=== PATIENT | female | born 1970 | race Caucasian/White ===

== ENCOUNTER → 2017-11-16 16:41 | Outpatient (CLI) | payer OTHER, SELFPAY ==
[2017-11-16 18:01] LABS: Creatinine, Serum 0.67 mg/dL (0.55-1.02); EST Glomerular Filtration Rate 99 mL/min (>60); Est Glom Filt Rate - Afr Amer 120 mL/min (>60); Ferritin 22 ng/mL (8-252); Glucose 90 mg/dL (74-106)
== END ==
PROVIDERS: Family Provider Family Medicine; PCP Family Medicine; Visit Provider Family Medicine
DX: D64.9 Anemia, unspecified (principal); E16.2 Hypoglycemia, unspecified
CPT/HCPCS: 36415; 82565; 82728; 82947; 83036

== ENCOUNTER → 2017-12-19 10:35 | Outpatient (CLI) | payer OTHER, SELFPAY ==
[2017-12-19 12:47] LABS: Free T3 2.7 pg/mL (2.18-3.98); T4 Free Direct 1.07 ng/dL (0.76-1.46); Thyroid Stim Hormone (TSH) 1.39 uIU/mL (0.358-3.74)
== END ==
PROVIDERS: Family Provider Family Medicine; PCP Family Medicine; Visit Provider Family Medicine
DX: R00.0 Tachycardia, unspecified (principal)
CPT/HCPCS: 36415; 84439; 84443; 84481

== ENCOUNTER → 2018-01-15 12:17 | Outpatient (CLI) | payer OTHER, SELFPAY ==
--- NOTE | 2018-01-15 12:20 | BI_ITS ---
MAMMOGRAPHY - BILATERAL SCREENING REASON FOR EXAM: Female, 47 years old. Routine annual screening examination. PERTINENT HISTORY: Non-contributory. TECHNIQUE: Digital bilateral breast christian (3D mammographic acquisition) in the CC and MLO projections. 2-D mediolateral oblique (MLO) and craniocaudad (CC) views of both breasts were obtained. CAD: Full Field Digital Mammography with Computer Added Detection was performed. COMPARISON: None. Baseline examination. FINDINGS: Breast Composition: The breasts are extremely dense, which lowers the sensitivity of mammography. There are no dominant masses or suspicious calcifications. No other significant abnormalities are identified. BI/SCREENING MAMM (CAD), BILAT IMPRESSION: Negative screening mammogram. Yearly followup mammogram recommended. (A) ASSESSMENT CATEGORY: BIRADS Category 1: Negative. A letter regarding these results will be sent to the patient by the facility within 30 days. Approximately 10% of breast cancers are not detected by mammography. A normal mammogram should not delay biopsy of a clinically suspicious abnormality. [id number] Electronically Signed: Yaya Phillips MD at 15:21 EDT Tel [phone], Service support ,
== END ==
PROVIDERS: Family Provider Family Medicine; PCP Family Medicine; Visit Provider Family Medicine
DX: Z00.00 Encounter for general adult medical examination without abnormal findings (principal); Z12.31 Encounter for screening mammogram for malignant neoplasm of breast
CPT/HCPCS: 77063; 77067

== ENCOUNTER → 2018-07-30 17:38 | Outpatient (CLI) | payer OTHER, SELFPAY ==
[2018-07-30 14:43] VITALS: BMI 19.3
[2018-08-02 16:29] LABS: HPV APTIMA, High Risk Negative (Negative)
== END ==
PROVIDERS: Family Provider Family Medicine; PCP Family Medicine; Visit Provider Obstetrics & Gynecology
DX: Z12.4 Encounter for screening for malignant neoplasm of cervix (principal)
CPT/HCPCS: 87624; 88175; G0145

== ENCOUNTER → 2021-10-21 | Outpatient (CLI) | payer OTHER, SELFPAY ==
--- NOTE | 2021-10-21 14:12 | BI_ITS ---
MAMMOGRAPHY - BILATERAL SCREENING REASON FOR EXAM: Female, 51 years old. Routine annual screening examination. PERTINENT HISTORY: Non-contributory. TECHNIQUE: Digital bilateral breast hector (3D mammographic acquisition) in the CC and MLO projections. 2-D mediolateral oblique (MLO) and craniocaudad (CC) views of both breasts were obtained. CAD: Full Field Digital Mammography with Computer Added Detection was performed. COMPARISON: Comparison is made with prior study dated 01/15/2018. FINDINGS: Breast Composition: The breasts are extremely dense, which lowers the sensitivity of mammography. There are no dominant masses or suspicious calcifications. No other significant abnormalities are identified. There has been no significant change since the prior study. BI/SCRN MAMM (CAD)W/HECTOR BILAT IMPRESSION: Stable bilateral screening mammogram. Yearly follow-up mammogram recommended. (A) ASSESSMENT CATEGORY: BIRADS Category 1: Negative. A letter regarding these results will be sent to the patient by the facility within 30 days. Approximately 10% of breast cancers are not detected by mammography. A normal mammogram should not delay biopsy of a clinically suspicious abnormality. [id number] Electronically Signed: Yaya Phillips MD at 14:52 EDT ,
== END | disposition home or self-care (01) ==
LOC: OPBI 14:11
PROVIDERS: PCP Family Medicine; Visit Provider Family Medicine
DX: Z12.31 Encounter for screening mammogram for malignant neoplasm of breast (principal)
CPT/HCPCS: 77063; 77067

== ENCOUNTER → 2022-02-03 | Outpatient (CLI) | payer OTHER, SELFPAY ==
[2022-02-03 15:23] LABS: Absolute Lymphocyte Count 1.75 X10^3/uL (0.83-4.51); Absolute Neutrophil Count 3.8 X10^3/uL (2.0-7.7); Basophil# 0.03 X10^3/uL; Basophil% 0.5 % (0-1); Eosinophil# 0.15 X10^3/uL; Eosinophils% 2.4 % (0-5); Hematocrit 40.8 % (37-47); Hemoglobin 13.4 g/dL (12.0-15.0); Lymphocyte # 1.75 X10^3/ul (0.83-4.51); Lymphocyte % 28.4 % (19-41); Mean Corp Hgb Conc 32.8 g/dL (32-36); Mean Corpuscular Hgb 28.1 pg (27.0-32.0); Mean Corpuscular Volume 85.5 fL (81-99); Mean Platelet Vol. 10.4 fl (6.2-12.0); Monocyte# 0.47 X10^3/uL; Monocyte% 7.6 % (0-10); NRBC Flagged by Analyzer 0 % (0-5); Neutrophil # 3.75 X10^3/uL (2.7-7.7); Neutrophil % 60.9 % (47-70); Platelet Count 320 K/mm3 (150-450); RBC Distribution Width CV 14.1 % (11.6-14.6); RBC Distribution Width SD 44.4 fl (35.1-43.9); Red Blood Count 4.77 M/mm3 (4.2-5.4); White Blood Count 6.2 K/mm3 (4.4-11.0)
[2022-02-03 16:04] LABS: Cholesterol 195 mg/dL (200); Creatinine, Serum 0.72 mg/dL (0.55-1.02); EST Glomerular Filtration Rate 90 mL/min (>60); Est Glom Filt Rate - Afr Amer 109 mL/min (>60); Ferritin 17 ng/mL (8-252); High Density Lipoprotein 70 mg/dL; Iron 67 ug/dL (50-170)
== END | disposition home or self-care (01) ==
LOC: MTLAB 14:05
PROVIDERS: PCP Family Medicine; Referring Provider Family Medicine; Visit Provider Family Medicine
DX: E61.1 Iron deficiency (principal); Z13.220 Encounter for screening for lipoid disorders
CPT/HCPCS: 36415; 82465; 82565; 82728; 83540; 83718; 85025

== ENCOUNTER 2022-02-10 07:23 | Day surgery (SDC) | payer OTHER, SELFPAY ==
[2022-02-10] VITALS (8 sets, daily range): BP systolic 84–123; BP diastolic 59–85; PULSE 80–109; RESP 16–18; TEMP 36.1–36.9; O2SAT 97–100; BMI 18.1
[2022-02-10 07:55] LABS: Internal QC Validated? YES +Cl - CLEAR BKGD
[2022-02-10 07:59] LABS: Pregnancy, Urine Negative Negative
[2022-02-10] MEDS: Lactated Ringers 1,000 ML 15 ML IV (08:00)
--- NOTE | 2022-02-10 08:39 | H&P.OPEN ---
HPI - General General Date of Admission: 02/10/22 Date of Service: 02/10/22 Chief Complaint: Open access colonoscopy HPI Narrative VALERIO GAYLE, is a 51 F who presents for her screening colonoscopy after meeting criteria for open access screening. She confirms the history previously provided that she has not had any prior scopes. She has not had any changes to her bowel movements?including any observation of blood in her stools. She denies any family history of GI diagnoses. She comments on her history of documented reflux?stating is not that bad and that she is not on any medication for this issue. FORMERLY [facility] Medical History (Updated 02/04/22 @ 15:21 by Halley Magallanes) Allergic rhinitis, unspecified Gastric reflux History of echocardiogram History of irregular heartbeat History of ulceration Hypoglycemia Wears glasses Home Medications loratadine 10 mg tablet (Claritin) 10 mg PO PRN PRN ALLERGIES 07/30/18 [History Last Taken Unknown] Allergy/AdvReac Type Severity Reaction Status Date / Time amoxicillin Allergy Intermediate Rash Verified 02/10/22 07:36 Family History (Updated 12/22/21 @ 08:37 by Afshan Zhang) Sister Renal cancer Mother Rheumatoid arthritis Father Alzheimer disease Surgical History History of tonsillectomy Social History Smoking Status: Never smoker alcohol intake: never substance use type: does not use caffeine: Yes what type of physical activity do you participate in: walking seatbelt use: always do you feel safe at home: Yes additional social history: 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 Past Medical/Surgical History Planned Operation Planned Operative Procedure/s: COLONOSCOPY Previous Hospitalizations/Surgeries HX Hospitalizations: No Any Problems With Anesthesia: No You/Your Family Experience Fever (Hyperthermia) With Anes: No Cholinesterase deficiency: No Cardiovascular Hx Hypertension: No Respiratory Hx Sleep Apnea: No Hx Respiratory Tract Infection/Cold (presently): No Do You Snore Loudly (louder than talking or can be heard): No Do You Often Feel Tired/ Fatigued/ Sleepy Dring Daytime?: No Has Anyone Observed You Stop Breathing During Sleep?: No Result (for STOP score): Negative Smoking Status: Never smoker Neurological Does patient have nerve stimulator: No Reproduction : No Miscellaneous Recent Exposure to Contagious Disease: No Allergies amoxicillin Allergy (Intermediate, Verified 02/10/22 07:36) Rash Discharge Is Pt Admitted From a Longterm, or a Fdc: No After D/C, Where Do you Plan to Go: Return Home Vital Signs Vital Signs Vital Signs: 02/10/22 07:51 02/10/22 07:51 Temperature 98.5 F Temperature Source Temporal Pulse Rate 109 H Respiratory Rate 16 Respiratory Pattern Normal Blood Pressure 123/85 H Blood Pressure Mean 97 Blood Pressure Source Monitor Blood Pressure Position Semi-Fowlers Blood Pressure Location Right Arm Pulse Ox 100 Oxygen Delivery Method Room Air Weight Weight: 99 lb 3.328 oz Body Mass Index (BMI) 18.1 Physical Exam Const alert General Appearance: cooperative Resp normal respiratory effort GI soft to palpation and non-tender Assessment & Plan Assessment/Plan (1) Encounter for screening for malignant neoplasm of colon: PLAN: This is a 51-year-old, open access screening colonoscopy candidate who presents for her procedure today. She confirms a history previously obtained for criteria matching with open access program. She also confirms that she completed a bowel prep successfully and that her output is now clear. Therefore we will proceed for colonoscopy under local MAC as planned. Surgery Risks - Colonoscopy Risks Include but are not Limited To: Risks include but are not limited to: Bleeding, perforation requiring further surgery, inability to complete colonoscopy requiring barium enema.
--- NOTE | 2022-02-10 09:19 | OP.COLON_ITS ---
Patient Name: Lexii Feliz Procedure Date: 02/10/2022 8:32 AM Date of : 1970 Age: 51 Procedure: Colonoscopy Indications: Screening for colorectal malignant neoplasm Providers: Daryl Sanz MD Medicines: See the Anesthesia note for documentation of the administered medications Patient Profile: Refer to note in patient chart for documentation of history and physical. Last Colonoscopy: none. The patient's first colonoscopy is today. Complications: No immediate complications. Estimated blood loss: None. Procedure: Pre-Anesthesia Assessment: - The heart rate, respiratory rate, oxygen saturations, blood pressure, adequacy of pulmonary ventilation, and response to care were monitored throughout the procedure. After I obtained informed consent, the scope was passed under direct vision. Throughout the procedure, the patient's blood pressure, pulse, and oxygen saturations were monitored continuously. The pediatric colonoscope was introduced through the anus and advanced to the cecum, identified by appendiceal orifice and ileocecal valve. The colonoscopy was performed without difficulty. The patient tolerated the procedure well. The quality of the bowel preparation was adequate to identify polyps. Scope In: 8:46:55 AM Scope Withdrawal Time 0 hours 10 minutes 31 seconds Scope Out: 9:07:35 AM Total Procedure Duration Time 0 hours 20 minutes 40 seconds Findings: The perianal and digital rectal examinations were normal. The entire examined colon appeared normal on direct and retroflexion views. Impression: - The entire examined colon is normal on direct and retroflexion views. - No specimens collected. Recommendation: - Discharge patient to home (via wheelchair). - Resume regular diet today. - Continue present medications. - Repeat colonoscopy in 10 years for screening purposes. Procedure Code(s): --- Professional --- G0121, Colorectal cancer screening; colonoscopy on individual not meeting criteria for high risk Diagnosis Code(s): --- Professional --- Z12.11, Encounter for screening for malignant neoplasm of colon CPT copyright 2017 [employer]. All rights reserved. The codes documented in this report are preliminary and upon financial reporting specialist review may be revised to meet current compliance requirements. Daryl Sanz MD 02/10/2022 9:18:42 AM This report has been signed electronically. Number of Addenda: 0 Note Initiated On: 02/10/2022 8:32 AM
--- NOTE | 2022-02-10 09:20 | OP.CCLET_ITS ---
02/10/2022 Sriram Gomez [address] [place] [address] Re : Colonoscopy procedure for Lexii Feliz Dear Dr. Gomez This procedure was performed on January. My impressions and recommendations are as follows: Impressions : - The entire examined colon is normal on direct and retroflexion views. - No specimens collected. Recommendations : - Discharge patient to home (via wheelchair). - Resume regular diet today. - Continue present medications. - Repeat colonoscopy in 10 years for screening purposes. My findings are described in the full procedure note, which is enclosed. If I can be of further assistance, please feel free to contact me at Doctor phone number(s): , Work: . Sincerely, Daryl Sanz MD 02/10/2022 9:18:42 AM This report has been signed electronically.
== END 2022-02-10 10:10 | disposition home or self-care (01) ==
LOC: EN 07:29 → AC 08:02
PROVIDERS: Anesthesiology; PCP Family Medicine; Referring Provider Family Medicine; Visit Provider Surgery
PROC: 0DJD8ZZ Inspection of Lower Intestinal Tract, Via Natural or Artificial Opening Endoscopic (ICD-10-PCS; CPT 45378; principal; 2022-02-10 08:25)
DX: Z12.11 Encounter for screening for malignant neoplasm of colon (principal); K92.1 Melena
CPT/HCPCS: G0121; 81025; J7120

== ENCOUNTER → 2023-01-19 | Outpatient (CLI) | payer OTHER, SELFPAY ==
--- NOTE | 2023-01-19 15:06 | BI_ITS ---
MAMMOGRAPHY - BILATERAL SCREENING REASON FOR EXAM: Female, 52 years old. Routine annual screening examination. PERTINENT HISTORY: Non-contributory. TECHNIQUE: Digital bilateral breast hector (3D mammographic acquisition) in the CC and MLO projections. 2-D mediolateral oblique (MLO) and craniocaudad (CC) views of both breasts were obtained. CAD: Full Field Digital Mammography with Computer Added Detection was performed. COMPARISON: Comparison is made with prior examination of October 21, 2021 and January 15, 2018. FINDINGS: Breast Composition: The breasts are extremely dense, which lowers the sensitivity of mammography. There are no dominant masses or suspicious calcifications. No other significant abnormalities are identified. There has been no significant change since the prior study. BI/SCRN MAMM (CAD)W/HECTOR BILAT IMPRESSION: Stable bilateral screening mammogram. Yearly follow-up mammogram recommended. (A) ASSESSMENT CATEGORY: BIRADS Category 1: Negative. A letter regarding these results will be sent to the patient by the facility within 30 days. Approximately 10% of breast cancers are not detected by mammography. A normal mammogram should not delay biopsy of a clinically suspicious abnormality. [id number] Electronically Signed: Yaya Phillips MD at 15:38 EDT ,
== END | disposition home or self-care (01) ==
PROVIDERS: PCP Family Medicine; Referring Provider Family Medicine; Visit Provider Family Medicine
DX: Z12.31 Encounter for screening mammogram for malignant neoplasm of breast (principal)
CPT/HCPCS: 77063; 77067

== ENCOUNTER → 2023-05-18 | Outpatient (CLI) | payer OTHER, SELFPAY ==
[2023-05-18 17:46] LABS: Absolute Lymphocyte Count 1.56 X10^3/uL (0.83-4.51); Basophil# 0.04 X10^3/uL; Basophil% 0.7 % (0-1); Eosinophil# 0.09 X10^3/uL; Eosinophils% 1.5 % (0-5); Hemoglobin 13.6 g/dL (12.0-15.0); Lymphocyte # 1.56 X10^3/ul (0.83-4.51); Lymphocyte % 25.4 % (19-41); Mean Corp Hgb Conc 32.4 g/dL (32-36); Mean Corpuscular Hgb 28.2 pg (27.0-32.0); Mean Platelet Vol. 10.3 fl (6.2-12.0); Monocyte# 0.45 X10^3/uL; Monocyte% 7.3 % (0-10); NRBC Flagged by Analyzer 0 % (0-5); Neutrophil % 64.9 % (47-70); Platelet Count 318 K/mm3 (150-450); RBC Distribution Width CV 13.2 % (11.6-14.6); RBC Distribution Width SD 41.9 fl (35.1-43.9); RET-HE 32.9 pg (30-35); Red Blood Count 4.83 M/mm3 (4.2-5.4); Reticulocyte Count 1.22 % (0.5-1.5); White Blood Count 6.2 K/mm3 (4.4-11.0)
[2023-05-18 18:09] LABS: Vitamin B12 734 pg/mL (211-911)
[2023-05-18 19:02] LABS: ALB/GLOB Ratio 1.1 RATIO (0.9-2.4); AST(SGOT) 18 U/L (15-37); Alanine Aminotransfer ALT/SGPT 24 U/L (13-56); Albumin, Serum 3.8 g/dL (3.2-5.0); Alkaline Phosphatase 93 U/L (45-117); Anion Gap 3 (5-15); BUN 19 mg/dL (7-18); BUN/Creat Ratio 20.9 RATIO (10-20); Calcium,Total 9.5 mg/dL (8.5-10.1); Chloride 105 mmol/L (98-107); Creatinine, Serum 0.91 mg/dL (0.55-1.02); EST Glomerular Filtration Rate 69 mL/min (>60); Est Glom Filt Rate - Afr Amer 83 mL/min (>60); Globulin 3.6 g/dL (2.2-4.2); Glucose 103 mg/dL (74-106); Iron 83 ug/dL (50-170); Iron Binding Capacity,Total 321 ug/dL (250-450); Potassium 3.7 mmol/L (3.5-5.1); Protein, Total 7.4 g/dL (6.4-8.2); Sodium Level 139 mmol/L (136-145)
== END | disposition home or self-care (01) ==
LOC: MTLAB 14:18
PROVIDERS: PCP Family Medicine; Referring Provider Family Medicine; Visit Provider Family Medicine
DX: E61.1 Iron deficiency (principal)
CPT/HCPCS: 36415; 80053; 82607; 82746; 83540; 83550; 85025; 85045

== ENCOUNTER → 2023-08-17 | Outpatient (CLI) | payer OTHER, SELFPAY ==
[2023-08-17 17:42] LABS: Erythrocyte Sedimentation Rate 3 mm/hr (0-30)
[2023-08-17 18:26] LABS: CRP < 2.90 mg/L (0.0-3.0); Cholesterol 199 mg/dL (200); High Density Lipoprotein 67 mg/dL
[2023-08-21 14:08] LABS: PROEL- A/G Ratio 1.4 (0.7-1.7); PROEL- Albumin 3.9 g/dL (2.9-4.4); PROEL- Alpha-1 Globulin 0.2 g/dL (0.0-0.4); PROEL- Alpha-2 Globulin 0.6 g/dL (0.4-1.0); PROEL- Beta Globulin 1.1 g/dL (0.7-1.3); PROEL- Gamma Globulin 0.9 g/dL (0.4-1.8); PROEL- Globulin, Total 2.8 g/dL (2.2-3.9); PROEL- TOTAL PROTEIN 6.7 g/dL (6.0-8.5); PROEL-M-Spike Not Observed g/dL (Not Observed)
== END | disposition home or self-care (01) ==
LOC: MFPLAB 15:27
PROVIDERS: PCP Family Medicine; Visit Provider Family Medicine
DX: I73.9 Peripheral vascular disease, unspecified (principal)
CPT/HCPCS: 36415; 82465; 83718; 84165; 85652; 86140

== ENCOUNTER 2023-08-31 08:35 | Outpatient (CLI) | payer OTHER, SELFPAY ==
--- NOTE | 2023-08-31 08:47 | VDLE_ITS ---
Reason For Study: edema RIGHT LEFT CFV is compressible, spontaneous, phasic, CFV is compressible, spontaneous, phasic, competent and demonstrates normal competent, and demonstrates normal augmentation. augmentation. FV is compressible, spontaneous, phasic, FV is compressible, spontaneous, phasic, competent and demonstrates normal competent and demonstrates normal augmentation. augmentation. POP V is compressible, spontaneous, phasic, POP V is compressible, spontaneous, phasic, competent and demonstrates normal competent and demonstrates normal augmentation. augmentation. T/P Trunk is compressible. T/P Trunk is compressible. PTV is compressible. PTV is compressible. RT PerV is compressible. LT PerV is compressible. SFJ is competent and measures .35 cm. SFJ is competent and measures .55 cm. GSV proximal thigh measures .12 x .14 cm. GSV proximal thigh measures .16 x .14 cm. GSV at knee measures .06 x .06 cm. GSV at knee measures .08 x .1 cm. GSV is competent throughout. GSV is competent throughout. SSV proximal calf is competent and SSV proximal calf is competent and measures .08 x .1 cm. measures .1 x .12 cm. Procedure This is a venous duplex using B-mode, color flow and spectral Doppler. Exam performed in department. The exam was diagnostic. VL/Venous Duplex US - Joce Extrem Interpretation Summary Deep veins of the lower extremities are bilaterally patent and compressible seg mentally. There is no evidence of deep vein thrombosis on either side. Valvular competence appears in tact within the proximal deep venous systems bilaterally. The great saphenous veins appear bila terally patent and compressible segmentally. Sapheno-femoral junctions are bilaterally competent . Valvular competence appears to be intact segmentally within the great saphenous veins bilaterally. Small saphenous veins are patent and competent bilaterally. Ordering Physician: Sriram Gomez Referring Physician: Sriram Gomez Performed By: Abdifatah James RVT
--- NOTE | 2023-08-31 08:47 | ART_ITS ---
Reason For Study: PVD with claudication Procedure A bilateral lower extremity continuous wave Doppler with analog waveform analysis,segmental pressures,and ankle brachial indexes with exercise. Left Segmental Pressures Left brachial= 127mmHg. Left posterior tibial artery = 150mmHg. Left dorsalis pedis artery = 127mmHg. Left digit = 100 mmHg. The left dorsalis pedis waveforms are triphasic. The left posterior tibial artery waveforms are triphasic. Right Segmental Pressures Right brachial= 124mmHg. Right posterior tibial artery = 141mmHg. Right dorsalis pedis artery = 141mmHg. Right digit = 106 mmHg. The right dorsalis pedis waveforms are triphasic. The right posterior tibial artery waveforms are triphasic. Indices The right ankle brachial index by the posterior tibial artery is 1.11. The right ankle brachial index by the dorsalis pedis is 1.11. The right digital-brachial index is .83. The right post exercise ankle brachial index is 1.32. The left ankle brachial index by the dorsalis pedis is 1.0. The left ankle brachial index by the posterior tibial artery is 1.18. The left digital-brachial index is .79. The left post exercise ankle brachial index is 1.31. VL/Lower Ext Art Exam w/ Exercise Interpretation Summary Triphasic Doppler waveforms are noted at ankle level bilaterally. Pulse-volume recordings appear satisfactory at all levels bilaterally. Resting ankle-brachial indices are norm al bilaterally. Digital-brachial indices are normal bilaterally. The patient was ambulated on a treadmill at 2.1 MPH and a 5% incline, following which ankle pressures and ankle-brachial indices in creased bilaterally, a normal physiological response. There is no evidence of significant arterial occlusive disease in the lower ext remities bilaterally. Ordering Physician: Sriram Gomez Performed By: Abdifatah James RVKirill
== END 2023-08-31 23:59 | disposition home or self-care (01) ==
PROVIDERS: PCP Family Medicine; Referring Provider Family Medicine; Visit Provider Family Medicine
DX: I73.9 Peripheral vascular disease, unspecified (principal); R60.9 Edema, unspecified
CPT/HCPCS: 93924; 93970

== ENCOUNTER → 2023-10-17 | Outpatient (CLI) | payer OTHER, SELFPAY ==
--- NOTE | 2023-10-17 13:48 | ECHOD_ITS ---
Reason For Study: CARDIOMYOPATHY Procedure This was a 2D Doppler, Color Flow transthoracic echocardiogram. Exam performed in department. Left Ventricle Normal LV size. Left ventricular systolic function is normal. The left ventricular ejection fraction is 60 %. No regional wall motion abnormalities noted. Right Ventricle Normal RV size. Normal systolic function. Atria Normal left atrium. Normal right atrium. Mitral Valve Normal mitral valve. Tricuspid Valve Normal tricuspid valve. Mild tricuspid valve insufficiency. Pulmonary artery systolic pressure is 27 mmHg. Aortic Valve Trisinus/trileaflet aortic valve. Pulmonic Valve Normal pulmonic valve. Great Vessels Normal aortic root. The pulmonary artery is normal size. Normal inferior vena cava. Pericardium/Pleural No pericardial effusion. MMode/2D Measurements & Calculations LVIDd: 4.2 cm IVSd: 0.71 cm Ao root diam: 2.4 cm LVIDs: 2.8 cm LVPWd: 0.60 cm RVDd: 2.4 cm FS: 34.5 % LAV(MOD-bp): 30.5 ml LVAd ap4: 19.3 cm2 LVAd ap2: 19.5 cm2 LAV(MOD-bp) Indexed: 21.1 ml/m2 LVLd ap4: 6.3 cm LVLd ap2: 7.1 cm LAV(MOD-sp2): 30.6 ml EDV(MOD-sp4): 48.9 ml EDV(MOD-sp2): 45.9 ml LAV(MOD-sp4): 29.8 ml EDV(sp4-el): 50.1 ml EDV(sp2-el): 45.7 ml LVAs ap4: 10.6 cm2 LVAs ap2: 11.1 cm2 LVLs ap4: 4.9 cm LVLs ap2: 5.2 cm ESV(MOD-sp4): 20.1 ml ESV(MOD-sp2): 20.2 ml ESV(sp4-el): 19.3 ml ESV(sp2-el): 20.3 ml EF(MOD-sp4): 59.0 % EF(MOD-sp2): 56.0 % EF(sp4-el): 61.5 % SV(MOD-sp4): 28.9 ml SV(MOD-sp2): 25.7 ml SV(sp4-el): 30.8 ml LA dimension(2D): 2.5 cm LA A4 area: 12.7 cm2 RA A4 area: 9.9 cm2 TAPSE: 2.4 cm Time Measurements MV dec time: 0.13 sec Doppler Measurements & Calculations MV E max daryl: 62.9 cm/sec Lat Peak E' Daryl: 10.7 cm/sec Med Peak E' Daryl: 11.3 cm/sec MV A max daryl: 56.7 cm/sec E/E' lat: 5.9 E/E' med: 5.6 MV E/A: 1.1 MV V2 max: 86.7 cm/sec MV P1/2t max daryl: 85.7 cm/sec Ao V2 max: 135.3 cm/sec MV max P.0 mmHg MV P1/2t: 28.5 msec Ao max P.3 mmHg MV V2 mean: 49.2 cm/sec MV dec slope: 881.5 cm/sec2 Ao V2 mean: 94.6 cm/sec MV mean P.1 mmHg Ao mean P.0 mmHg MV V2 VTI: 14.7 cm MVA(P1/2t): 7.7 cm2 Ao V2 VTI: 26.4 cm AV (velocity ratio): 0.81 LV V1 max: 104.3 cm/sec PA V2 max: 108.8 cm/sec TR max daryl: 240.4 cm/sec LV V1 max P.4 mmHg PA V2 mean: 77.3 cm/sec TR max P.1 mmHg LV V1 mean P.3 mmHg LV V1 mean: 72.1 cm/sec LV V1 VTI: 21.6 cm ECHO/Echo Complete Interpretation Summary Normal LV size. Left ventricular systolic function is normal. Pulmonary artery systolic pressure is 27 mmHg. The left ventricular ejection fraction is 60 %. Mild tricuspid valve insufficiency. Ordering Physician: Sriram Gomez Referring Physician: Sriram Gomez Performed By: Ev Gramajo, RIYA, RVT
== END | disposition home or self-care (01) ==
LOC: CVS 13:46
PROVIDERS: PCP Family Medicine; Referring Provider Family Medicine; Visit Provider Family Medicine
DX: I42.9 Cardiomyopathy, unspecified (principal); I07.9 Rheumatic tricuspid valve disease, unspecified
CPT/HCPCS: 93306

== ENCOUNTER → 2023-10-26 | Outpatient (CLI) | payer OTHER, SELFPAY ==
[2023-10-28 10:13] LABS: Lyme Scn Total Ab w/Rflx Negative (Negative)
== END | disposition home or self-care (01) ==
LOC: MFPLAB 14:10
PROVIDERS: PCP Family Medicine; Visit Provider Family Medicine
DX: R00.2 Palpitations (principal)
CPT/HCPCS: 36415; 86618

== ENCOUNTER → 2024-01-10 | Outpatient (CLI) | payer OTHER, SELFPAY ==
[2024-01-10 12:10] LABS: T4 Total, Thyroxin 11.9 ug/dL (4.8-13.9); Thyroid Stim Hormone (TSH) 0.985 uIU/mL (0.358-3.740)
== END | disposition home or self-care (01) ==
LOC: LAB 11:15
PROVIDERS: PCP Family Medicine; Referring Provider Internal Medicine Cardiovascular Disease; Visit Provider Internal Medicine Cardiovascular Disease
DX: R00.0 Tachycardia, unspecified (principal)
CPT/HCPCS: 36415; 84436; 84443

== ENCOUNTER → 2024-01-31 | Outpatient (CLI) | payer OTHER, SELFPAY | END | disposition home or self-care (01) | LOC: PSN 08:52 | PROVIDERS: PCP Family Medicine; Referring Provider Internal Medicine Cardiovascular Disease; Visit Provider Internal Medicine Cardiovascular Disease | DX: R00.0 Tachycardia, unspecified (principal) | CPT/HCPCS: 93225; 93226 ==

== ENCOUNTER → 2024-03-05 | Outpatient (CLI) | payer OTHER, SELFPAY ==
[2024-03-14 06:09] LABS: Dopamine, Pl <30 pg/mL (0-48); Epinephrine, Pl 79 pg/mL (0-62); Norepinephrine, Pl 553 pg/mL (0-874); Renin, Plasma 0.772 ng/mL/hr (0.167-5.380)
== END | disposition home or self-care (01) ==
LOC: LAB 11:26
PROVIDERS: PCP Family Medicine; Referring Provider Internal Medicine Cardiovascular Disease; Visit Provider Internal Medicine Cardiovascular Disease
DX: R00.0 Tachycardia, unspecified (principal); R00.2 Palpitations
CPT/HCPCS: 36415; 82384; 84244

== ENCOUNTER → 2024-03-28 | Outpatient (CLI) | payer OTHER, SELFPAY ==
[2024-04-09 14:07] LABS: HPV APTIMA, High Risk Negative (Negative)
== END | disposition home or self-care (01) ==
LOC: LABSPEC 16:53
PROVIDERS: PCP Family Medicine; Referring Provider Nurse Practitioner Women's Health; Visit Provider Nurse Practitioner Women's Health
DX: Z12.4 Encounter for screening for malignant neoplasm of cervix (principal)
CPT/HCPCS: 87624; 88175; G0145

== ENCOUNTER → 2024-05-02 | Outpatient (CLI) | payer BC, SELFPAY ==
--- NOTE | 2024-05-02 13:14 | BI_ITS ---
MAMMOGRAPHY - BILATERAL SCREENING REASON FOR EXAM: Female, 54 years old. Routine annual screening examination. PERTINENT HISTORY: Non-contributory. TECHNIQUE: Digital bilateral breast hector (3D mammographic acquisition) in the CC and MLO projections. 2-D mediolateral oblique (MLO) and craniocaudad (CC) views of both breasts were obtained. CAD: Full Field Digital Mammography with Computer Added Detection was performed. COMPARISON: Comparison is made with prior study January 19, 2023 and October 21, 2021. FINDINGS: Breast Composition: The breasts are extremely dense, which lowers the sensitivity of mammography. There are no dominant masses or suspicious calcifications. No other significant abnormalities are identified. There has been no significant change since the prior study. BI/SCRN MAMM (CAD)W/HECTOR BILAT IMPRESSION: Stable bilateral screening mammogram. Yearly follow-up mammogram recommended. (A) ASSESSMENT CATEGORY: BIRADS Category 1: Negative. A letter regarding these results will be sent to the patient by the facility within 30 days. Approximately 10% of breast cancers are not detected by mammography. A normal mammogram should not delay biopsy of a clinically suspicious abnormality. [id number] Electronically Signed: Yaya Phillips MD at 14:53 EST ,
== END | disposition home or self-care (01) ==
LOC: OPBI 13:13
PROVIDERS: PCP Family Medicine; Referring Provider Nurse Practitioner Women's Health; Visit Provider Nurse Practitioner Women's Health
DX: Z12.31 Encounter for screening mammogram for malignant neoplasm of breast (principal)
CPT/HCPCS: 77063; 77067

== ENCOUNTER → 2025-02-13 | Outpatient (CLI) | payer BC, SELFPAY ==
[2025-02-13 18:10] LABS: Hematocrit 41.5 % (37-47); Hemoglobin 13.7 g/dL (12.0-15.0); Immature Granulocytes Count 0.020 X10^3/uL (0.0-0.0); Mean Corp Hgb Conc 33.0 g/dL (32-36); Mean Corpuscular Volume 86.5 fL (81-99); Mean Platelet Vol. 10.6 fl (6.2-12.0); NRBC Flagged by Analyzer 0 % (0-5); Platelet Count 341 K/mm3 (150-450); RBC Distribution Width CV 13.3 % (11.6-14.6); RBC Distribution Width SD 41.8 fl (35.1-43.9); Red Blood Count 4.80 M/mm3 (4.2-5.4); White Blood Count 8.1 K/mm3 (4.4-11.0)
[2025-02-13 19:03] LABS: AST(SGOT) 19 U/L (<=31); Alanine Aminotransfer ALT/SGPT 14 U/L (<=34); Albumin, Serum 4.5 g/dL (3.5-5.0); Alkaline Phosphatase 93 U/L (35-104); Anion Gap 11 (5-15); BUN 15 mg/dL (4-19); BUN/Creat Ratio 23.1 RATIO (10-20); Calcium,Total 9.9 mg/dL (7.6-11.0); Carbon Dioxide 26.0 mmol/L (21.0-32.0); Chloride 104 mmol/L (98-108); Globulin 2.9 g/dL (2.2-4.2); Glucose 126 mg/dL (70-99); Potassium 3.8 mmol/L (3.3-5.1); Vitamin B12 947 pg/mL (180-914); Vitamin D,25 Hydroxy 47.5 ng/mL (30-100)
[2025-02-13 19:04] LABS: CRP < 3.00 mg/L (0.0-3.0)
[2025-02-17 09:08] LABS: ANTINUCLEAR ANTIBODIES DIRECT Negative (Negative); SJOGREN'S Anti-SS-A test 0.2 AI (0.0-0.9); SJOGREN'S Anti-SS-B test < 0.2 AI (0.0-0.9)
== END | disposition home or self-care (01) ==
LOC: MTLAB 14:03
PROVIDERS: PCP Family Medicine; Referring Provider Podiatrist; Visit Provider Podiatrist
DX: G62.9 Polyneuropathy, unspecified (principal)
CPT/HCPCS: 36415; 80053; 82306; 82607; 83036; 85025; 85652; 86038; 86140; 86200; 86235; 86431

== ENCOUNTER → 2025-03-26 | Outpatient (CLI) | payer BC, SELFPAY ==
--- OUTSIDE RECORDS SUMMARY | 2025-03-26 07:16 | XMS RPT_ITS | CCD ---
Author Organization [facility] Care Team Providers Care Implementation Engineer Name Role Phone Dr. Sriram Gomez Primary Care Provider Afshan Zhang Attending Provider Unavailable Dr. Sriram Gomez Referring Provider Dr. Daryl Sanz Attending Provider [phone] Dr. Daryl Sanz Other Provider Jason VALDERRAMA, Dr. Bhatia Primary Care Physician Jason VALDERRAMA, Dr. Bhatia Referring Provider Violette VALDERRAMA, Dr. Willis Attending Physician Gomez, Sriram Primary Care Unavailable Wunning, Sergio Attending Unavailable Felipenning, Sergio Referring Unavailable Violette, [place] Attending Unavailable Gomez, Sriram Referring Unavailable Gomez, Sriram Primary Care Unavailable Gomez, Sriram Referring Unavailable Violette, [place] Attending Unavailable Gomez, Sriram Primary Care Unavailable Gomez, Sriram Primary Care Unavailable Violette, [place] Attending Unavailable Goemz, Sriram Referring Unavailable Gomez, Sriram Primary Care Unavailable Gomez, Sriram Referring Unavailable Harpreet MARKETING ANALYST, Maricel Attending Unavailable Gomez, Sriram Primary Care Unavailable [place] MARKETING ANALYST, Maricel Attending Unavailable Harpreet MARKETING ANALYST, Maricel Referring Unavailable Gomez, Sriram Primary Care Unavailable Violette, Lazaro Attending Unavailable Violette, Lazaro Referring Unavailable Gomez, Sriram Primary Care Unavailable Harpreet MARKETING ANALYST, Maricel Attending Unavailable [place] MARKETING ANALYST, Maricel Referring Unavailable Gomez, Sriram Primary Care Unavailable Wunning, Sergio Attending Unavailable Wunning, Sergio Referring Unavailable Gomez, Sriram Primary Care Unavailable Wunning, Sergio Attending Unavailable Wunning, Sergio Referring Unavailable Allergies Allergy Classification Reported Allergen(s) Allergy Type Date of Onset Reaction(s) Facility (5 sources) Amoxicillin Drug Allergy 02-04-2022 Rash [facility] (1 source) Amoxicillin Drug Allergy 01-09-2025 [facility] Repository Medications Current Medications Medication Drug Class(es) Dates Sig (Normalized) Sig (Original) ivabradine 5 mg oral tablet (4 sources) Hyperpolarizatio n-activated Cyclic Nucleotide-gated Channel Jabari Start: 03-05-2024 End: 01-09-2025 take 1 tablet by mouth twice daily at mealtime Ivabradine 5 mg tablet Active 5 mg PO TWICE A DAY 180 January 09, 2025 3:14pm must administer with a meal/food Complies with drug therapy loratadine 10 mg oral tablet (6 sources) Start: 07-30-2018 Loratadine (Claritin) 10 mg tablet Active 10 mg PO NEEDED as needed for ALLERGIES July 30, 2018 12:00am Complies with drug therapy midodrine hydrochloride 2.5 mg oral tablet (2 sources) alpha-Adrenergic Agonist Start: 09-24-2024 take 1 tablet by mouth twice daily Midodrine 2.5 mg tablet Active 2.5 mg PO TWICE A DAY 60 11 September 24, 2024 12:00am Complies with drug therapy Start: 07-11-2024 End: 09-24-2024 take 1 tablet by mouth once daily at bedtime Midodrine 5 mg tablet Discontinued 5 mg PO TWICE A DAY 60 July 11, 2024 12:00am September 24, 2024 10:16am do not give last dose of day after 6PM or within 4 hrs of bedtime Multivitamin tablet (1 source) Start: 09-12-2023 Multivitamin t ablet Active 1 {tbl} PO DAILY September 12, 2023 12:00am Complies with drug therapy Completed/Discontinued Medications Medication Drug Class(es) Dates Sig (Normalized) Sig (Original) 24 hr dilTIAZem hydrochloride 120 mg extended release oral capsule (1 source) Calcium Channel Jabari Start: 11-28-2023 End: 01-10-2024 take 1 capsule by mouth once daily Diltiazem Hcl 120 mg capsule,extended release 24 hr Discontinued 120 mg PO DAILY November 28, 2023 12:00am January 10, 2024 10:31am Magnesium (1 source) Start: 09-12-2023 End: 03-05-2024 take 1 tablet by mouth once daily Magnesium 250 mg tablet Discontinued 250 mg PO DAILY September 12, 2023 12:00am March 05, 2024 11:53am Multivitamin,Tx-Iron -Minerals (Complete Multivitamin) tablet (6 sources) Start: 07-30-2018 End: 12-22-2021 Multivitamin,Tx-Ir on-Minerals (Complete Multivitamin) tablet Discontinued 1 {tbl} PO DAILY July 30, 2018 12:00am December 22, 2021 8:38am Start: 07-30-2018 End: 12-22-2021 take 1 tablet by mouth once daily Multivitamin,Ep-Ekcp-Nysifiik (Complete Multivitamin) tablet Discontinued 1 TABLET PO DAILY July 29, 2018 11:00pm December 22, 2021 7:38am Start: 07-30-2018 End: 12-22-2021 take 1 tablet by mouth once daily Multivitamin,Jj-Npik-Wjmaffre (Complete Multivitamin) tablet Discontinued 1 TABLET PO DAILY July 30, 2018 12:00am December 22, 2021 8:38am Start: 07-30-2018 take 1 tablet by greg th once daily Multivitamin,Qz-Shku-Hocmmlwp (Complete Multivitamin) tablet Active 1 TABLET PO DAILY July 30, 2018 12:00am vitamin k2 0.1 mg oral capsu le (2 sources) Start: 11-28-2023 End: 01-10-2024 Vitamin K2 100 mcg capsule Discontinued 100 ug PO DAILY November 28, 2023 12:00am January 10, 2024 10:32am leg pain Start: 09-12-2023 End: 11-28-2023 Vitamin K2 40 mcg tablet Dis continued 40 ug PO DAILY September 12, 2023 12:00am November 28, 2023 3:16pm Problems Active Problems Problem Classification Problem Date Documented Da te Episodic/Chronic Esophageal disorders (1 source) Gastric reflux; Translations: [Gastro-esophageal reflux disease without esophagitis] 11-28-2023 Chronic Other circulatory disease (1 source) History of cardiac arrhythmia; Translations: [Personal history of other diseases of the circulatory system] 11-28-2023 Episodic Comment on above: HEART MURMUR Other connective tissue disease (1 source) Pain in lower limb; Translations: [Pain in leg, unspecified] 09-12-2023 Episodic Other connective tissue disease (1 source) Pain in right foot; Translations: [Pain in right foot] Onset: 02-24-2025 Episodic Other connective tissue disease (1 source) Pain in left foot; Translations: [Pain in left foot] Onset: 02-24-2025 Episodic Other nervous system disorders (1 source) Other hereditary and idiopathic neuropathies; Translations: [Other hereditary and idiopathic neuropathies] Onset: 02-24-2025 Chronic Past or Other Problems Problem Classification Problem Date Documented Da te Episodic/Chronic Cardiac dysrhythmias (5 sources) Intermittent palpitations; Translations: [Palpitations] Onset: 03-05-2024 11-28-2023 Episodic Other screening for suspected conditions (not mental disorders or infectious disease) (8 sources) Patient encounter status; Translations: [Encounter for screening for malignant neoplasm of colon] Onset: 03-28-2024 Episodic Results Test Name Value Interpretation Reference Range Facility ANTINUCLEAR ANTIBODIES DIREC Ton 02-17-2025 TIGIST,DIRECT Negative Normal Negative [facility] Comment on above: Result Comment: Perf ormed at: - [facility] [address] [id number] Public Works Technician: Ramón Alejo PhD, Phone: [phone] Performed By: #### L 501.9985, L501.6710, L505.7010, L101.9900, L3100.5475, L3100.9100, L4600.0100, L506.1001, L100.0100, L500.4050, L503.0106 ####[facility] [address] [place], [address] Sjogren's Antibodies A/Bon 1 04-19-2024 ANTI-SS-A 0.2 AI Normal 0.0-0.9 [facility] Comment on above: Performed By: #### L 501.9985, L501.6710, L505.7010, L101.9900, L3100.5475, L3100.9100, L4600.0100, L506.1001, L100.0100, L500.4050, L503.0106 ####[facility] [address] [place], [address] ANTI-SS-B < 0.2 Normal 0.0-0.9 [facility] Comment on above: Performed By: #### L 501.9985, L501.6710, L505.7010, L101.9900, L3100.5475, L3100.9100, L4600.0100, L506.1001, L100.0100, L500.4050, L503.0106 ####[facility] [address] [place], [place], [id number] CCP IgG Antibodieson 025 CCP IgG Ab. 9 units Normal 0-19 [facility] Comment on above: Result Comment: Nega tive <20 Weak positive 20 - 39 Moderate positive 40 - 59 Strong positive >59 Performed at: [address] [id number] Public Works Technician: Ramón Alejo PhD, Phone: [phone] Performed By: #### L 501.9985, L501.6710, L505.7010, L101.9900, L3100.5475, L3100.9100, L4600.0100, L506.1001, L100.0100, L500.4050, L503.0106 ####[facility] [address] [place], [place], [id number] CBC W/Diff, Automatedon 10-3 0-5 Absolute Lymph 1.23 X10 3/uL Normal 0.83-4.51 [facility] Comment on above: Performed By: #### L 501.9985, L501.6710, L505.7010, L101.9900, L3100.5475, L3100.9100, L4600.0100, L506.1001, L100.0100, L500.4050, L503.0106 #### [facility] [address] [place], [place], [id number] Absolute Neut 6.4 X10 3/uL Normal 2.0-7.7 [facility] Comment on above: Performed By: #### L 501.9985, L501.6710, L505.7010, L101.9900, L3100.5475, L3100.9100, L4600.0100, L506.1001, L100.0100, L500.4050, L503.0106 #### [facility] [address] [place], [address] Basophils/100 WBC (Bld) 0.5 % Normal 0-1 [facility] Comment on above: Performed By: #### L 501.9985, L501.6710, L505.7010, L101.9900, L3100.5475, L3100.9100, L4600.0100, L506.1001, L100.0100, L500.4050, L503.0106 #### [facility] [address] [facility] [place], [place], [phone] ([address] Eosinophils/100 WBC (Bld) 0.5 % Normal 0-5 [facility] Comment on above: Performed By: #### L 501.9985, L501.6710, L505.7010, L101.9900, L3100.5475, L3100.9100, L4600.0100, L506.1001, L100.0100, L500.4050, L503.0106 #### [facility] [address] [facility] [place], [place], [id number] (959) Erythrocyte distribution width (RBC) [Ratio] 13.3 % Normal 11.6-14.6 [facility] Comment on above: Performed By: #### L 501.9985, L501.6710, L505.7010, L101.9900, L3100.5475, L3100.9100, L4600.0100, L506.1001, L100.0100, L500.4050, L503.0106 #### [facility] [address] [place], [address] Hematocrit (Bld) [Volume fraction] 41.5 % Normal 37-47 [facility] Comment on above: Performed By: #### L 501.9985, L501.6710, L505.7010, L101.9900, L3100.5475, L3100.9100, L4600.0100, L506.1001, L100.0100, L500.4050, L503.0106 #### [facility] [address] [place], [address] Hemoglobin (Bld) [Mass/Vol] 13.7 g/dL Normal 12.0-15.0 [facility] Comment on above: Performed By: #### L 501.9985, L501.6710, L505.7010, L101.9900, L3100.5475, L3100.9100, L4600.0100, L506.1001, L100.0100, L500.4050, L503.0106 #### [facility] [address] [place], [address] IG% 0.200 Normal 0.0-0.9 [facility] Comment on above: Result Comment: IG% - Immature Granulocytes (promyelocytes, myelocytes and metamyelocytes) > 1% indicates that a LEFT SHIFT is Present. Performed By: #### L 501.9985, L501.6710, L505.7010, L101.9900, L3100.5475, L3100.9100, L4600.0100, L506.1001, L100.0100, L500.4050, L503.0106 #### [facility] [address] [place], [address] Lymphocytes/100 WBC (Bld) 15.2 % Low 19-41 [facility] Comment on above: Performed By: #### L 501.9985, L501.6710, L505.7010, L101.9900, L3100.5475, L3100.9100, L4600.0100, L506.1001, L100.0100, L500.4050, L503.0106 #### [facility] [address] [place], [address] MCH (RBC) [Entitic mass] 28.5 pg Normal 27.0-32.0 [facility] Comment on above: Performed By: #### L 501.9985, L501.6710, L505.7010, L101.9900, L3100.5475, L3100.9100, L4600.0100, L506.1001, L100.0100, L500.4050, L503.0106 #### [facility] [address] [place], [address] MCHC (RBC) [Mass/Vol] 33.0 g/dL Normal 32-36 [facility] Comment on above: Performed By: #### L 501.9985, L501.6710, L505.7010, L101.9900, L3100.5475, L3100.9100, L4600.0100, L506.1001, L100.0100, L500.4050, L503.0106 #### [facility] [address] [place], [address] MCV (RBC) [Entitic vol] 86.5 fL Normal 81-99 [facility] Comment on above: Performed By: #### L 501.9985, L501.6710, L505.7010, L101.9900, L3100.5475, L3100.9100, L4600.0100, L506.1001, L100.0100, L500.4050, L503.0106 #### [facility] [address] [place], [address] Monocytes/100 WBC (Bld) 4.8 % Normal 0-10 [facility] Comment on above: Performed By: #### L 501.9985, L501.6710, L505.7010, L101.9900, L3100.5475, L3100.9100, L4600.0100, L506.1001, L100.0100, L500.4050, L503.0106 #### [facility] [address] [place], [address] Neutrophils/100 WBC (Bld) 78.8 % High 47-70 [facility] Comment on above: Performed By: #### L 501.9985, L501.6710, L505.7010, L101.9900, L3100.5475, L3100.9100, L4600.0100, L506.1001, L100.0100, L500.4050, L503.0106 #### [facility] [address] [place], [address] Nucleated RBC (Bld) [#/Vol] 0 10*3/uL Normal 0-5 [facility] Comment on above: Performed By: #### L 501.9985, L501.6710, L505.7010, L101.9900, L3100.5475, L3100.9100, L4600.0100, L506.1001, L100.0100, L500.4050, L503.0106 #### [facility] [address] [place], [address] Platelet mean volume (Bld) [Entitic vol] 10.6 fL Normal 6.2-12.0 [facility] Comment on above: Performed By: #### L 501.9985, L501.6710, L505.7010, L101.9900, L3100.5475, L3100.9100, L4600.0100, L506.1001, L100.0100, L500.4050, L503.0106 #### [facility] [address] [place], [address] Platelets (Bld) [#/Vol] 341 10*3/uL Normal 150-450 [facility] Comment on above: Performed By: #### L 501.9985, L501.6710, L505.7010, L101.9900, L3100.5475, L3100.9100, L4600.0100, L506.1001, L100.0100, L500.4050, L503.0106 #### [facility] [address] [place], [address] RBC (Bld) [#/Vol] 4.80 10*6/uL Normal 4.2-5.4 [facility] Comment on above: Performed By: #### L 501.9985, L501.6710, L505.7010, L101.9900, L3100.5475, L3100.9100, L4600.0100, L506.1001, L100.0100, L500.4050, L503.0106 #### [facility] [address] [facility] [place], [place], [id number] (846) RDW SD 41.8 fl Normal 35.1-43.9 [facility] Comment on above: Performed By: #### L 501.9985, L501.6710, L505.7010, L101.9900, L3100.5475, L3100.9100, L4600.0100, L506.1001, L100.0100, L500.4050, L503.0106 #### [facility] [address] [facility] [place], [place], [id number] (278) WBC (Bld) [#/Vol] 8.1 10*3/uL Normal 4.4-11.0 [facility] Comment on above: Performed By: #### L 501.9985, L501.6710, L505.7010, L101.9900, L3100.5475, L3100.9100, L4600.0100, L506.1001, L100.0100, L500.4050, L503.0106 #### [facility] [address] [facility] [place], [place], [id number] (398) CRPon 02-13-2025 C-REACTIVE PROT < 3.00 Normal 0.0-3.0 [facility] Comment on above: Performed By: #### L 501.9985, L501.6710, L505.7010, L101.9900, L3100.5475, L3100.9100, L4600.0100, L506.1001, L100.0100, L500.4050, L503.0106 ####[facility] [address] [place], [place], [id number] Comprehensive Metabolic Prof coon 02-13-2025 Albumin [Mass/Vol] 4.5 g/dL Normal 3.5-5.0 [facility] Comment on above: Performed By: #### L 501.9985, L501.6710, L505.7010, L101.9900, L3100.5475, L3100.9100, L4600.0100, L506.1001, L100.0100, L500.4050, L503.0106 #### [facility] [address] [place], [place], [id number] Albumin/Globulin [Mass ratio] 1.5 {ratio} Normal 0.9-2.4 [facility] Comment on above: Performed By: #### L 501.9985, L501.6710, L505.7010, L101.9900, L3100.5475, L3100.9100, L4600.0100, L506.1001, L100.0100, L500.4050, L503.0106 #### [facility] [address] [place], [place], [id number] ALK PHOS 93 U/L Normal 35-104 [facility] Comment on above: Performed By: #### L 501.9985, L501.6710, L505.7010, L101.9900, L3100.5475, L3100.9100, L4600.0100, L506.1001, L100.0100, L500.4050, L503.0106 #### [facility] [address] [place], [address] ALT [Catalytic activity/Vol] 14 U/L Normal <=34 [facility] Comment on above: Performed By: #### L 501.9985, L501.6710, L505.7010, L101.9900, L3100.5475, L3100.9100, L4600.0100, L506.1001, L100.0100, L500.4050, L503.0106 #### [facility] [address] [place], [address] (923) AST [Catalytic activity/Vol] 19 U/L Normal <=31 [facility] Comment on above: Performed By: #### L 501.9985, L501.6710, L505.7010, L101.9900, L3100.5475, L3100.9100, L4600.0100, L506.1001, L100.0100, L500.4050, L503.0106 #### [facility] [address] [place], [address] Bilirubin [Mass/Vol] 0.49 mg/dL Normal 0.00-1.30 [facility] Comment on above: Performed By: #### L 501.9985, L501.6710, L505.7010, L101.9900, L3100.5475, L3100.9100, L4600.0100, L506.1001, L100.0100, L500.4050, L503.0106 #### [facility] [address] [place], [address] BUN/CRE 23.1 RATIO High 10-20 [facility] Comment on above: Performed By: #### L 501.9985, L501.6710, L505.7010, L101.9900, L3100.5475, L3100.9100, L4600.0100, L506.1001, L100.0100, L500.4050, L503.0106 #### [facility] [address] [place], [address] Calcium [Mass/Vol] 9.9 mg/dL Normal 7.6-11.0 [facility] Comment on above: Performed By: #### L 501.9985, L501.6710, L505.7010, L101.9900, L3100.5475, L3100.9100, L4600.0100, L506.1001, L100.0100, L500.4050, L503.0106 #### [facility] [address] [place], [address] Chloride [Moles/Vol] 104 mmol/L Normal 98-108 [facility] Comment on above: Performed By: #### L 501.9985, L501.6710, L505.7010, L101.9900, L3100.5475, L3100.9100, L4600.0100, L506.1001, L100.0100, L500.4050, L503.0106 #### [facility] [address] [place], [place], [id number] (876) CO2 [Moles/Vol] 26.0 mmol/L Normal 21.0-32.0 [facility] Comment on above: Performed By: #### L 501.9985, L501.6710, L505.7010, L101.9900, L3100.5475, L3100.9100, L4600.0100, L506.1001, L100.0100, L500.4050, L503.0106 #### [facility] [address] [place], [address] Creatinine [Mass/Vol] 0.66 mg/dL Low 0.70-1.20 [facility] Comment on above: Performed By: #### L 501.9985, L501.6710, L505.7010, L101.9900, L3100.5475, L3100.9100, L4600.0100, L506.1001, L100.0100, L500.4050, L503.0106 #### [facility] [address] [place], [place], [id number] (984) GAP 11 Normal 5-15 [facility] Comment on above: Performed By: #### L 501.9985, L501.6710, L505.7010, L101.9900, L3100.5475, L3100.9100, L4600.0100, L506.1001, L100.0100, L500.4050, L503.0106 #### [facility] [address] [place], [place], [id number] (522) GFR/1.73 sq M.predicted among non-blacks MDRD (S/P/Bld) [Vol rate/Area] 104 mL/min/{1.73_m2} Normal >60 [facility] Comment on above: Result Comment: mL/m in/1.73m2 CKD-EPI Creatinine Equation (2020) Performed By: #### L 501.9985, L501.6710, L505.7010, L101.9900, L3100.5475, L3100.9100, L4600.0100, L506.1001, L100.0100, L500.4050, L503.0106 #### [facility] [address] [place], [place], [id number] (442) Globulin (S) [Mass/Vol] 2.9 g/dL Normal 2.2-4.2 [facility] Comment on above: Performed By: #### L 501.9985, L501.6710, L505.7010, L101.9900, L3100.5475, L3100.9100, L4600.0100, L506.1001, L100.0100, L500.4050, L503.0106 #### [facility] [address] [place], [place], [id number] (459) Glucose [Mass/Vol] 126 mg/dL High 70-99 [facility] Comment on above: Performed By: #### L 501.9985, L501.6710, L505.7010, L101.9900, L3100.5475, L3100.9100, L4600.0100, L506.1001, L100.0100, L500.4050, L503.0106 #### [facility] [address] [place], [address] Potassium [Moles/Vol] 3.8 mmol/L Normal 3.3-5.1 [facility] Comment on above: Performed By: #### L 501.9985, L501.6710, L505.7010, L101.9900, L3100.5475, L3100.9100, L4600.0100, L506.1001, L100.0100, L500.4050, L503.0106 #### [facility] [address] [place], [address] Sodium [Moles/Vol] 141 mmol/L Normal 133-145 [facility] Comment on above: Performed By: #### L 501.9985, L501.6710, L505.7010, L101.9900, L3100.5475, L3100.9100, L4600.0100, L506.1001, L100.0100, L500.4050, L503.0106 #### [facility] [address] [place], [address] T PROT 7.4 g/dL Normal 5.9-8.4 [facility] Comment on above: Performed By: #### L 501.9985, L501.6710, L505.7010, L101.9900, L3100.5475, L3100.9100, L4600.0100, L506.1001, L100.0100, L500.4050, L503.0106 #### [facility] [address] [place], [address] Urea nitrogen [Mass/Vol] 15 mg/dL Normal 4-19 [facility] Comment on above: Performed By: #### L 501.9985, L501.6710, L505.7010, L101.9900, L3100.5475, L3100.9100, L4600.0100, L506.1001, L100.0100, L500.4050, L503.0106 #### [facility] [address] [place], [address] Erythrocyte Sed Rateon 02-13 SED RATE 8 mm/hr Normal 0-30 [facility] Comment on above: Performed By: #### L 501.9985, L501.6710, L505.7010, L101.9900, L3100.5475, L3100.9100, L4600.0100, L506.1001, L100.0100, L500.4050, L503.0106 #### [facility] [address] [place], [address] Hemoglobin A1con 02-13-2025 HbA1c (Bld) [Mass fraction] 5.5 % Normal <=5.6 [facility] Comment on above: Result Comment: Norm al < 5.7 % Prediabetic 5.7 - 6.4 % Diabetic >or= 6.5 % Please note range changes. Performed By: #### L 501.9985, L501.6710, L505.7010, L101.9900, L3100.5475, L3100.9100, L4600.0100, L506.1001, L100.0100, L500.4050, L503.0106 #### [facility] [address] [place], [address] Rheumatoid Factoron 02-14-20 25 RHEUMATOID FAC < 10.0 Normal <15 [facility] Comment on above: Performed By: #### L 501.9985, L501.6710, L505.7010, L101.9900, L3100.5475, L3100.9100, L4600.0100, L506.1001, L100.0100, L500.4050, L503.0106 ####[facility] [address] [place], [place], [address] Vitamin B12on 02-13-2025 Cobalamin (Vitamin B12) [Mass/Vol] 947 pg/mL High 180-914 [facility] Comment on above: Performed By: #### L 501.9985, L501.6710, L505.7010, L101.9900, L3100.5475, L3100.9100, L4600.0100, L506.1001, L100.0100, L500.4050, L503.0106 #### [facility] [address] [place], [place], [id number] Vitamin D,25 Hydroxyon 02-13 Vitamin D 25-OH 47.5 ng/mL Normal 30-100 [facility] Comment on above: Result Comment: Valerie min D Status Deficiency: <20 ng/mL (50nmol/L) Insufficiency: 20-30 ng/mL (50-75 nmol/L) Sufficiency: 30-100 ng/mL (75-250 nmol/L) Toxicity: >100 ng/mL (>250 nmol/L) Performed By: #### L 501.9985, L501.6710, L505.7010, L101.9900, L3100.5475, L3100.9100, L4600.0100, L506.1001, L100.0100, L500.4050, L503.0106 #### [facility] [address] [place], [place], [address] Cardiology Visit Reporton Cardiology Visit Report [facility] [address] [place], [place] [id number] OFFICE VISIT Date of Service: 01/09/25 MR#: [id number] Acct: [id number] Name: VALERIO GAYLE Rep #: [id number] : 1970 Provider: Dr. Lazaro Oakes MD Age/Sex: 54/F Location: [facility] Status: Signed HPI HPI History of Present Illness Details: 54-year-old lady with a history of palpitations. As part of her workup she had a 7-day monitor placed which demonstrated an average heart rate of 87 bpm minimum of less than 40 bpm. She was in tachycardia 26% of the time. She had initially been put on a beta-jabari of carvedilol half a tablet of 3.125 mg twice a day she is developed headache lightheadedness and got very fatigued and discontinued it. Then she was put on diltiazem 120 mg and says she developed paradoxical increased heart rate dizziness headache tiredness trouble concentrating check and neck discomfort in the second week on the diltiazem was the same and she stopped the diltiazem after 2-1/2 weeks. Overall she says that she is feeling better after she stopped the medication she has only occasional lightheadedness. After her last visit I obtained a 48-hour Holter monitor which demonstrated an average heart rate of 99 bpm. Her echocardiogram demonstrated preserved ejection fraction of 60%. Her TSH was noted to be normal. Her T4 is also normal. She has been started on the ivabradine and she thinks that she is doing much better. Her blood pressures at home have actually been doing quite well with the midodrine. She is happy with the current dosages and does not want any changes. She does have documentation for the above. Intake Vital Signs 07/11/24 14:24 01/09/25 15:04 Height 5 ft 2 in 5 ft 2 in Weight: 105 lb 103 lb BMI 19.2 18.8 BP 130/81 H 133/79 H Blood Pressure Location Lt brachial Lt brachial Position Sitting Sitting Respiration 16 16 Pulse 113 H 123 H Pulse Source Monitor Intake Visit Reasons: 6 M [employer] Doctor Required: No Accompanied by: Self Is patient in pain?: No Allergies amoxicillin Allergy (Intermediate, Verified 01/09/25 15:07) Rash Medications ???Medication ???Instructions ???Recorded ???Confirmed ???Type loratadine 10 mg tablet (Claritin) 10 mg PO PRN PRN ALLERGIES 07/3001/09/25 History multivitamin 1 tab PO DAILY 09/12/23 01/09/25 H istory midodrine 2.5 mg tablet 2.5 mg PO BID #60 tabs 09/24/24 Rx ivabradine 5 mg tablet 5 mg PO BID #180 tabs 01/09/25 Rx Ejection fraction %: 60 PFSH Medical History Intermittent palpitations Tachycardia Gastric reflux History of irregular heartbeat Surgical History History of colonoscopy History of tonsillectomy Family History Sister Renal cancer Mother Rheumatoid arthritis Father Alzheimer disease Social History Smoking Status: Never smoker alcohol intake: never substance use type: does not use caffeine: Yes what type of physical activity do you participate in: walking seatbelt use: always do you feel safe at home: Yes 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 Const Const: Negative for fatigue, weakness, daytime sleepiness or difficulty sleeping ENT ENT: Positive for dizziness (has decreased since starting midodrine ); Negative for Nosebleed/epistaxis Cardio Chest Pain: No Palpitations: Yes Edema: None Resp Respiratory: Negative for SOB with activity, SOB at rest, SOB orthopnea SOB lying down or Cough GI GI: Negative nausea, vomiting or heartburn Neuro Neuro: Positive for dizziness (has decreased since starting midodrine ); Negative for lightheadedness, near syncope or weakness Endo Endo: Negative for fatigue Supplemental Info Supplemental Information Echocardiogram 10/17/23 Interpretation Summary Normal LV size. Left ventricular systolic function is normal. Pulmonary artery systolic pressure is 27 mmHg. The left ventricular ejection fraction is 60 %. Mild tricuspid valve insufficiency. 48 Hour Holter Monitor 01/31/24 Conclusion Normal Sinus Rhythm with rare PVCs/PACs Diagnostics: Electrocardiogram Echocardiogram Extremity Arterial Study Venous Doppler Study Past Visits: Cardiology Visit Today Assessment and Plan Assessment and Plan (1) Tachycardia: Status: Acute Plan: She appears to have a residual sinus tachycardia the etiology of which is not entirely clear. This has improved significantly since the ivabradine and she will continue on the 5 mg twice a day. Her blood pressure she says has been low and she has been (more content not included)... Normal [facility] Cardiology Visit Reporton Cardiology Visit Report [facility] [address] [place] [address] OFFICE VISIT Date of Service: 07/11/24 MR#: [id number] Acct: [id number] Name: VALERIO GAYLE Rep #: [id number] : 1970 Provider: Dr. Lazaro Oakes MD Age/Sex: 54/F Location: [facility] [place] Status: Signed HPI HPI History of Present Illness Details: 54-year-old lady with a history of palpitations. She also complains of mild chest discomfort she says this has been going on for the last few months. As part of her workup she had a 7-day monitor placed which demonstrated an average heart rate of 87 bpm minimum of less than 40 bpm. She was in tachycardia 26% of the time. She had initially been put on a beta-jabari of carvedilol half a tablet of 3.125 mg twice a day she is developed headache lightheadedness and got very fatigued and discontinued it. Then she was put on diltiazem 120 mg and says she developed paradoxical increased heart rate dizziness headache tiredness trouble concentrating check and neck discomfort in the second week on the diltiazem was the same and she stopped the diltiazem after 2-1/2 weeks. Overall she says that she is feeling better after she stopped the medication she has only occasional lightheadedness. After her last visit I obtained a 48-hour Holter monitor which demonstrated an average heart rate of 99 bpm. Her echocardiogram demonstrated preserved ejection fraction of 60%. Her TSH was noted to be normal. Her T4 is also normal. She has been started on the ivabradine and she thinks that she is doing much better. Her blood pressure is at home remain a little low but her heart rate has certainly improved. She is wearing support stockings as well as an abdominal vest. Intake Vital Signs 03/05/24 10:51 03/28/24 14:43 07/11/24 14:24 Height 5 ft 2 in 5 ft 2 in 5 ft 2 in Weight: 105 lb BMI 19.2 BP 130/81 H Blood Pressure Location Lt brachial Position Sitting Respiration 16 Pulse 113 H Pulse Source Monitor Intake Visit Reasons: 4 M [employer] Doctor Required: No Is patient in pain?: No Allergies amoxicillin Allergy (Intermediate, Verified 07/11/24 14:25) Rash Medications ???Medication ???Instructions ???Recorded ???Confirmed ???Type loratadine 10 mg tablet (Claritin) 10 mg PO PRN PRN ALLERGIES 07/3007/11/24 History multivitamin 1 tab PO DAILY 09/12/23 07/11/24 H istory ivabradine 5 mg tablet 5 mg PO BID #60 tabs 07/11/2406/16 Rx midodrine 5 mg tablet 5 mg PO BID #60 tabs 07/11/2406/16 Rx Have you fallen in the past year?: No PFSH Medical History Gastric reflux History of irregular heartbeat Intermittent palpitations Tachycardia Surgical History History of colonoscopy History of tonsillectomy Family History Sister Renal cancer Mother Rheumatoid arthritis Father Alzheimer disease Social History Smoking Status: Never smoker alcohol intake: never substance use type: does not use caffeine: Yes what type of physical activity do you participate in: walking seatbelt use: always do you feel safe at home: Yes 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 Const Const: Negative for fatigue, weakness, headache(s), daytime sleepiness or difficulty sleeping ENT ENT: Positive for dizziness; Negative for headache(s) or Nosebleed/epistaxis Cardio Chest Pain: No Palpitations: Yes Edema: None Resp Respiratory: Negative for SOB with activity, SOB at rest, SOB orthopnea SOB lying down or Cough GI GI: Negative nausea, vomiting or heartburn Neuro Neuro: Positive for dizziness and lightheadedness; Negative for near syncope, headache(s) or weakness Endo Endo: Negative for fatigue Cardiology Exam Const Appearance: cooperative, healthy appearing, no acute distress, well developed and well groomed Nutritional Appearance: average body habitus and well nourished Orientation: alert, awake and oriented x3 Head Head: normal to inspection, normocephalic and atraumatic Ears: hearing grossly normal bilaterally and external ears normal Nose: external nose normal, nares normal, nasal mucous membranes and turbinates normal, septum normal and no nasal discharge Face and Sinus: face symmetric Mouth: oral mucosae normal, tongue normal, oropharynx normal and moist mucous membranes Teeth and gingiva: dentition normal Throat: posterior oropharynx normal, tonsils normal and uvula midline Eyes General: appearance normal, both eyes and all related structures Eyelids: eyelids normal Conjunctivae: conjunctivae normal Pupils: PERRL, normal by confrontation an (more content not included)... Normal [facility] SCRN MAMM (CAD)W/HECTOR BILATo n 05-02-2024 SCRN MAMM (CAD)W/HECTOR BILAT [facility] Imaging Services [address] [place], [place] [address] SCRN MAMM (CAD)W/HECTOR BILAT MR#: [id number] Acct: [id number] Name: VALERIO GAYLE Rep #: [id number] : 1970 F 54 From: Yaya pineda MD PCP: Dr. Sriram Gomez MD Status: [facility] Study: SCRN MAMM (CAD)W/HECTOR BILAT Date of Exam: 04/17 10/09 Exam# [id number] Ordering Dr: Maricel Mullins MARKETING ANALYST MARKETING ANALYST -C [id number] MAMMOGRAPHY - BILATERAL SCREENING REASON FOR EXAM: Female, 54 years old. Routine annual screening examination. PERTINENT HISTORY: Non-contributory. TECHNIQUE: Digital bilateral breast hector (3D mammographic acquisition) in the CC and MLO projections. 2-D mediolateral oblique (MLO) and craniocaudad (CC) views of both breasts were obtained. CAD: Full Field Digital Mammography with Computer Added Detection was performed. COMPARISON: Comparison is made with prior study January 19, 2023 and October 21, 2021. FINDINGS: Breast Composition: The breasts are extremely dense, which lowers the sensitivity of mammography. There are no dominant masses or suspicious calcifications. No other significant abnormalities are identified. There has been no significant change since the prior study. BI/SCRN MAMM (CAD)W/HECTOR BILAT IMPRESSION: Stable bilateral screening mammogram. Yearly follow-up mammogram recommended. (A) ASSESSMENT CATEGORY: BIRADS Category 1: Negative. A letter regarding these results will be sent to the patient by the facility within 30 days. Approximately 10% of breast cancers are not detected by mammography. A normal mammogram should not delay biopsy of a clinically suspicious abnormality. [id number] Electronically Signed: Yaya Phillips MD at 14:53 EST Reading Location ID and State: [address] [place] [address] , Service support , CC: NISHI Mullins; Dr. Sriram Gomez MD Pipe Organ Builder: Signed Normal [facility] PAP IG HPV APTIMA 16/18,45on 04-09-2024 ADEQ Comment Normal . [facility] Comment on above: Order Comment: Speci men Comment: [id number] Comment: Source.............CervixSpecimen Comment: Other..............Post MenopausalSpecimen Comment: No. of containers..01 ThinPrep Vial Result Comment: Sati sfactory for evaluation. Endocervical and/or squamous metaplastic cells (endocervical component) are present. Areas of partially obscuring inflammatory exudate are present. Performed By: #### L 7400.0280 ####[facility] [address] [place], [address] COMM . Normal . [facility] Comment on above: Order Comment: Speci men Comment: [id number] Comment: Source.............CervixSpecimen Comment: Other..............Post MenopausalSpecimen Comment: No. of containers..01 ThinPrep Vial Performed By: #### L 7400.0280 ####[facility] [address] [place], [place], [id number] COMMENT Comment Normal . [facility] Comment on above: Order Comment: Speci men Comment: [id number] Comment: Source.............CervixSpecimen Comment: Other..............Post MenopausalSpecimen Comment: No. of containers..01 ThinPrep Vial Result Comment: This liquid based ThinPrep(R) pap test was screened with the use of an image guided system. Performed By: #### L 7400.0280 ####[facility] [address] [place], [place], [id number] DIAG Comment Normal . [facility] Comment on above: Order Comment: Speci men Comment: [id number] Comment: Source.............CervixSpecimen Comment: Other..............Post MenopausalSpecimen Comment: No. of containers..01 ThinPrep Vial Result Comment: NEGA TIVE FOR INTRAEPITHELIAL LESION OR MALIGNANCY. THIS SPECIMEN WAS RESCREENED PART OF OUR TMH TEACHER PROGRAM. Performed By: #### L 7400.0280 ####[facility] [address] [place], [address] HPV APTIMA, HR Negative Normal Negative [facility] Comment on above: Order Comment: Speci men Comment: [id number] Comment: Source.............CervixSpecimen Comment: Other..............Post MenopausalSpecimen Comment: No. of containers..01 ThinPrep Vial Result Comment: This nucleic acid amplification test detects fourteen high- risk HPV types (16,18,31,33,35,39,45,51,52,56,58,59,66,68) without differentiation. Performed By: #### L 7400.0280 ####[facility] [address] [place], [place], [id number] HPV Bryanna Rfx Comment Normal . [facility] Comment on above: Order Comment: Speci men Comment: [id number] Comment: Source.............CervixSpecimen Comment: Other..............Post MenopausalSpecimen Comment: No. of containers..01 ThinPrep Vial Result Comment: Crit eria not met, HPV Genotype not performed. Performed at: [address] [id number] Public Works Technician: Kathleen Thurman MD, Phone: [phone] Performed at: [address] [id number] Public Works Technician: Shweta Munroe PhD, Phone: [phone] Performed at: [address] [id number] Public Works Technician: Kathleen Thurman MD, Phone: [phone] Performed By: #### L 7400.0280 ####[facility] [address], [place], [id number] PAPSMR Comment Normal . [facility] Comment on above: Order Comment: Speci men Comment: [id number] Comment: Source.............CervixSpecimen Comment: Other..............Post MenopausalSpecimen Comment: No. of containers..01 ThinPrep Vial Result Comment: The Pap smear is a screening test designed to aid in the detection of premalignant and malignant conditions of the uterine cervix. It is not a diagnostic procedure and should not be used as the sole means of detecting cervical cancer. Both false-positive and false-negative reports do occur. Performed By: #### L 7400.0280 ####[facility] [address] [place], [address] PERFORM Comment Normal . [facility] Comment on above: Order Comment: Speci men Comment: [id number] Comment: Source.............CervixSpecimen Comment: Other..............Post MenopausalSpecimen Comment: No. of containers..01 ThinPrep Vial Result Comment: Eloise Flores, Gospel Worker (ASCP) Performed By: #### L 7400.0280 ####[facility] [address] [place], [place], [address] QC REV Comment Normal . [facility] Comment on above: Order Comment: Speci men Comment: [id number] Comment: Source.............CervixSpecimen Comment: Other..............Post MenopausalSpecimen Comment: No. of containers..01 ThinPrep Vial Result Comment: Merly Valles, Gospel Worker Performed By: #### L 7400.0280 ####[facility] [address] [place], [address] Networking Specialist Office Visit Reporton 03-28-2024 Networking Specialist Office Visit Report [facility] [address], [address] [place] [address] OFFICE VISIT Date of Service: 03/28/24 MR#: [id number] Acct: [id number] Name: VALERIO GAYLE Rep #: [id number] : 1970 Provider: NISHI monge Age/Sex: 53/F [place] [facility] [place]: Signed Intake Vital Signs 01/10/24 10:23 03/05/24 10:51 03/28/24 14:39 03/28/24 14:43 Height 5 ft 2 in 5 ft 2 in 5 ft 2 in 5 ft 2 in Weight: 102 lb 105 lb 6 oz BMI 18.6 19.3 BP 137/87 H 124/72 H Blood Pressure Location Lt brachial Position Sitting Respiration 16 Pulse 133 H Pulse Source Monitor 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 Doctor Required: No Is patient in pain?: No Allergies amoxicillin Allergy (Intermediate, Verified 03/28/24 14:39) Rash Medications ???Medication ???Instructions ???Recorded ???Confirmed ???Type loratadine 10 mg tablet (Claritin) 10 mg PO PRN PRN ALLERGIES 07/30/18 03/28/24 History multivitamin 1 tab PO DAILY 09/12/23 03/28/24 History ivabradine 5 mg tablet 5 mg PO BID #60 tabs 03/05/24 03/28/24 Rx Is last menstrual period known: No Post menopausal: Yes Patient : No : No PFSH Medical History Intermittent palpitations Tachycardia Gastric reflux History of irregular heartbeat Surgical History History of colonoscopy History of tonsillectomy Family History Sister Renal cancer Mother Rheumatoid arthritis Father Alzheimer disease Social History Smoking Status: Never smoker alcohol intake: never substance use type: does not use caffeine: Yes what type of physical activity do you participate in: walking seatbelt use: always do you feel safe at home: Yes 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 Date Name GA/Weeks Outcome Route Bth Weight Gen Labor Lgth Anesthesia Del Locatn Provider FOB Unknown 1993 Lara live - full term Unknown 1995 Marbin live - full term HPI Encounter for routine gynecological examination Details: VALERIO GAYLE is a 53 year old who presents for annual exam. Denies concerns Last PAP: 2019 History of abnormal PAP: no Last mammogram: 01/2023 History of abnormal mammogram: no Colon cancer screenin Other preventative health care screenings: Sae Gomez Female Reproductive History Questions: metorrhagia: No, sexually active: Yes, dyspareunia: No and PCB: No ROS Const Constitutional: Denies fatigue, weight gain or weight loss Cardio Card: Denies chest pain Resp Resp: Denies cough or dyspnea on exertion GI GI: Denies abdominal pain, bloating, change in stool character, constipation or vomiting : Reports as per HPI; Denies difficulty voiding, pelvic pain, urinary frequency, urinary incontinence, urinary urgency, vaginal discharge or vaginal pruritus Exam Const General: cooperative, healthy appearing, no acute distress and well developed Orientation: alert, oriented to person and oriented to place HENNC Head: normal to inspection Neck Neck: normal visual inspection Thyroid: thyroid normal Lymphatic: no lymphadenopathy noted Chest Breast inspection: normal inspection of the breasts and normal inspection of the axillae Breast palpation: normal palpation of the breasts, normal palpation of the axillae and no axillary lymphadenopathy Resp Effort Inspection: normal respiratory effort GI Palpation: soft, no masses and nontender Rectal Exam: deferred External Female Exam: normal external appearance and normal appearance of the urethra Urethra: normal appearance of the urethra and normal palpation Speculum Exam - Vagina: normal appearance of the vagina and normal vaginal discharge Speculum Exam - Cervix: normal appearance of the cervix Bimanual Exam- Vagina Uterus: normal bimanual exam, uterine size normal, uterine shape normal and non-tender Bimanual Exam- Adnexa, other: normal adnexae, no masses, normal and non-tender Pelvic Support: normal Neuro General: patient alert and patient oriented x3 Psych Affect: normal affect Coding Level of Care Code Off vis,est,prev 40-64yrs Diagnoses Encounter for gynecological examination without abnormal finding Z01.419 Gynecological examination findings: abnormal findings ABSENT Assessment and Plan Assessment and Plan (1) Encounte (more content not included)... Normal [facility] Catecholamines, Plasmaon DOPAMINE <30 Normal 0-48 [facility] Comment on above: Order Comment: Test( s) 033351-Dmjml Activity, Plasmawas developed and its performance characteristicsdetermined by [facility]. It has not been cleared or approvedby the Food and Drug Administration. Performed By: #### L 3400.4000, L3430.0100 ####[facility] [address] [place], [address] EPINEPHRINE 79 pg/mL Abnormal 0-62 [facility] Comment on above: Order Comment: Test( s) 165617-Shpfp Activity, Plasmawas developed and its performance characteristicsdetermined by [facility]. It has not been cleared or approvedby the Food and Drug Administration. Performed By: #### L 3400.4000, L3430.0100 ####[facility] [address] [place], [address] NOREPINEPHRINE 553 pg/mL Normal 0-874 [facility] Comment on above: Order Comment: Test( s) 797072-Ugass Activity, Plasmawas developed and its performance characteristicsdetermined by [facility]. It has not been cleared or approvedby the Food and Drug Administration. Performed By: #### L 3400.4000, L3430.0100 ####[facility] [address] [place], [address] Renin, Plasmaon 03-14-2024 RENIN, PLASMA 0.772 ng/mL/hr Normal 0.167-5.38 0 [facility] Comment on above: Order Comment: Test( s) 513497-Akfas Activity, Plasmawas developed and its performance characteristicsdetermined by [facility]. It has not been cleared or approvedby the Food and Drug Administration. Result Comment: Perf ormed at: - [facility] [address] [id number] Public Works Technician: Gagan Arambula MD, Phone: [phone] Performed By: #### L 3400.4000, L3430.0100 ####[facility] [address] [place], [address] Cardiology Visit Reporton Cardiology Visit Report [facility] [address] [place] [address] OFFICE VISIT Date of Service: 03/05/24 MR#: [id number] Acct: [id number] Name: VALERIO GAYLE Rep #: [id number] : 1970 Provider: Dr. Lazaro Oakes MD Age/Sex: 53/F Location: [facility] [place] Status: Signed HPI HPI History of Present Illness Details: 53-year-old lady with a history of palpitations. She also complains of mild chest discomfort she says this has been going on for the last few months. As part of her workup she had a 7-day monitor placed which demonstrated an average heart rate of 87 bpm minimum of less than 40 bpm. She was in tachycardia 26% of the time. She had initially been put on a beta-jabari of carvedilol half a tablet of 3.125 mg twice a day she is developed headache lightheadedness and got very fatigued and discontinued it. Then she was put on diltiazem 120 mg and says she developed paradoxical increased heart rate dizziness headache tiredness trouble concentrating check and neck discomfort in the second week on the diltiazem was the same and she stopped the diltiazem after 2-1/2 weeks. Overall she says that she is feeling better after she stopped the medication she has only occasional lightheadedness. After her last visit I obtained a 48-hour Holter monitor which demonstrated an average heart rate of 99 bpm. Her echocardiogram demonstrated preserved ejection fraction of 60%. Her TSH was noted to be normal. Her T4 is also normal. Intake Vital Signs 01/10/24 10:23 03/05/24 10:51 Height 5 ft 2 in 5 ft 2 in Weight: 103 lb 6 oz 102 lb BMI 18.8 18.6 BP 146/83 H 137/87 H Blood Pressure Location Lt brachial Lt brachial Position Sitting Sitting Respiration 16 16 Pulse 126 H 133 H Pulse Source Monitor Monitor Intake Visit Reasons: 2 M [employer] Doctor Required: No Accompanied by: Self Is patient in pain?: No Allergies amoxicillin Allergy (Intermediate, Verified 03/05/24 10:53) Rash Medications ???Medication ???Instructions ???Recorded ???Confirmed ???Type loratadine 10 mg tablet (Claritin) 10 mg PO PRN PRN ALLERGIES 07/30/18 03/05/24 History multivitamin 1 tab PO DAILY 09/12/23 03/05/24 History ivabradine 5 mg tablet 5 mg PO BID #60 tabs 03/05/24 03/05/24 Rx Have you fallen in the past year?: No PFSH Medical History Intermittent palpitations Tachycardia Gastric reflux History of irregular heartbeat Surgical History History of colonoscopy History of tonsillectomy Family History Sister Renal cancer Mother Rheumatoid arthritis Father Alzheimer disease Social History Smoking Status: Never smoker alcohol intake: never substance use type: does not use caffeine: Yes what type of physical activity do you participate in: walking seatbelt use: always do you feel safe at home: Yes 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 Const Const: Positive for fatigue; Negative for weakness, headache(s), daytime sleepiness or difficulty sleeping ENT ENT: Positive for dizziness; Negative for headache(s) or Nosebleed/epistaxis Cardio Chest Pain: No Palpitations: Yes feels like its: irregular Edema: None (wears compression stockings) Resp Respiratory: Negative for SOB with activity, SOB at rest, SOB orthopnea SOB lying down or Cough GI GI: Negative nausea, vomiting or heartburn Neuro Neuro: Positive for dizziness and lightheadedness; Negative for near syncope, headache(s) or weakness Endo Endo: Positive for fatigue Cardiology Exam Const Appearance: cooperative, healthy appearing, no acute distress, well developed and well groomed Nutritional Appearance: average body habitus and well nourished Orientation: alert, awake and oriented x3 Head Head: normal to inspection, normocephalic and atraumatic Ears: hearing grossly normal bilaterally and external ears normal Nose: external nose normal, nares normal, nasal mucous membranes and turbinates normal, septum normal and no nasal discharge Face and Sinus: face symmetric Mouth: oral mucosae normal, tongue normal, oropharynx normal and moist mucous membranes Teeth and gingiva: dentition normal Throat: posterior oropharynx normal, tonsils normal and uvula midline Eyes General: appearance normal, both eyes and all related structures Eyelids: eyelids normal Conjunctivae: conjunctivae normal Pupils: PERRL, normal by confrontation and accommodation normal EOM: EOM intact bilaterally Neck Neck: normal visual inspection, trachea midline and no JVD JVD: +5 Carotids: normal carotid upstroke and bounding pulses Chest Chest (more content not included)... Normal [facility] Albumin Elph [Mass/Vol]Order ed By: Sriram Gomez on 08-17-2023 Albumin [Mass/Vol] 3.9 g/dL 2.9-4.4 [facility] Basophil percentageOrdered B y: rSiram Gomez on 08-17-2023 Cholesterol [Mass/Vol] 199 mg/dL <200 [facility] Comment on above: <200 mg/dL Desirable 200-240 mg/dL Borderline >240 mg/dL High Risk Erythrocyte sedimentation ra teOrdered By: Sriram Gomez on 08-17-2023 ESR (Bld) [Velocity] 3 mm/h 0-30 [facility] Laboratory - Chemistry and C hemistry - challengeOrdered By: Sriram Gomez on 08-17-2023 Cholesterol in HDL [Mass/Vol] 67 mg/dL >40 [facility] Comment on above: The drugs N-Acetylcy steine and Metamizole may falsely depress this assay. Reference Range HDL <40 mg/dL Low HDL Cholesterol HDL >or= 60 mg/dL High HDL Cholesterol No Panel InformationOrdered By: Sriram Gomez on 08-17-2023 Addendum Document Comment . [facility] Comment on above: The SPE pattern appe ars unremarkable. Evidence ofmonoclonal protein is not apparent.Performed at: - [facility] [id number] Director: Ramón Alejo PhD, Phone: [phone] Ajecy-8-Jekjglsgt 0.2 g/dL 0.0-0.4 [facility] Xkgbw-1-Bqqgrcesz 0.6 g/dL 0.4-1.0 [facility] C-Reactive Protein Extended Range < 2.90 mg/L 0.0-3.0 [facility] Comment on above: C-Reactive Protein ( CRP) provides useful information for thediagnosis, therapy and monitoring of inflammatory processesand associated diseases. For the evaluation of Relative Riskfor Cardiovascular Disease, a High Sensitivity CRP (HSCRP)should be ordered. Gamma Globulins 0.9 g/dL 0.4-1.8 [facility] Protein Fractions Elph [Inte rp]Ordered By: Sriram Gomez on 08-17-2023 Protein Fractions [Interp] Comment . [facility] Comment on above: Protein electrophore sis scan will follow via computer,mail, or environmental health physician delivery. Serum albumin to globulin ra darek by protein electrophoresisOrdered By: Sriram Gomez on 08-17-2023 Albumin/Globulin Elph [Mass ratio] 1.4 0.7-1.7 [facility] Serum globulin measurement ( mass/volume)Ordered By: Sriram Gomez on 08-17-2023 Globulin (S) [Mass/Vol] 2.8 g/dL 2.2-3.9 [facility] Serum or plasma beta globuli n measurement by electrophoresis (mass/volume)Ordered By: Sriram Gomez on 08-17-2023 Beta globulin Elph [Mass/Vol] 1.1 g/dL 0.7-1.3 [facility] Serum or plasma protein mono clonal measurement by electrophoresis (mass/volume)Ordered By: Sriram Gomez on 08-17-2023 Protein.monoclonal Elph [Mass/Vol] Not Observed g/dL Not Observed [facility] Total protein bloodOrdered B y: Sriram Gomez on 08-17-2023 Protein [Mass/Vol] 6.7 g/dL 6.0-8.5 [facility] Absolute lymphocyte countOrd ered By: Sriram Gomez on 05-18-2023 Lymphocytes Auto (Unsp spec) [#/Vol] 1.56 10*3/uL 0.83-4.51 [facility] Automated lymphocyte count a s percentage of total leukocytesOrdered By: Sriram Gomez on 05-18-2023 Lymphocytes/100 WBC Auto (Unsp spec) 25.4 % 19-41 [facility] Basophil percentageOrdered B y: Sriram Gomez on 05-18-2023 Basophils/100 WBC (Bld) 0.7 % 0-1 [facility] Bilirubin [Mass/Vol] 0.50 mg/dL 0.20-1.00 [facility] Comment on above: For patients on eltr ombopag therapy, use of Dimension Tolstoy TBIL is not recommended. Chloride [Moles/Vol] 105 mmol/L 98-107 [facility] Eosinophils/100 WBC (Bld) 1.5 % 0-5 [facility] Glucose [Mass/Vol] 103 mg/dL 74-106 [facility] Comment on above: Fasting Glucose resu lt from 100 to 125 mg/dL suggests IMPAIRED HOMEOSTASIS per A.D.A. criteria. Hemoglobin (Bld) [Mass/Vol] 13.6 g/dL 12.0-15.0 [facility] Monocytes/100 WBC (Bld) 7.3 % 0-10 [facility] Neutrophils (Bld) [#/Vol] 4.0 10*3/uL 2.0-7.7 [facility] Neutrophils/100 WBC (Bld) 64.9 % 47-70 [facility] Potassium [Moles/Vol] 3.7 mmol/L 3.5-5.1 [facility] Protein [Mass/Vol] 7.4 g/dL 6.4-8.2 [facility] Sodium [Moles/Vol] 139 mmol/L 136-145 [facility] WBC (Bld) [#/Vol] 6.2 10*3/uL 4.4-11.0 [facility] Determination of erythrocyte mean corpuscular volume (MCV)Ordered By: Sriram Gomez on 05-18-2023 MCV (RBC) [Entitic vol] 87.0 fL 81-99 [facility] Erythrocyte distribution wid th ratioOrdered By: Sriram Gomez on 05-18-2023 Erythrocyte distribution width (RBC) [Ratio] 13.2 % 11.6-14.6 [facility] Erythrocyte distribution wid th standard deviationOrdered By: Sriram Gomez on 05-18-2023 Erythrocyte distribution width (RBC) [Entitic vol] 41.9 fL 35.1-43.9 [facility] Hematocrit Auto (Bld) [Volum e fraction]Ordered By: Sriram Gomez on 05-18-2023 Hematocrit (Bld) [Volume fraction] 42.0 % 37-47 [facility] Hemoglobin in reticulocytes (mass per reticulocyte)Ordered By: Sriram Gomez on 05-18-2023 Hemoglobin (Reticulocytes) [Entitic mass] 32.9 pg 30-35 [facility] Immature granulocytes/100 WB C Auto (Bld)Ordered By: Sriram Gomez on 05-18-2023 Immature granulocytes/100 WBC (Bld) 0.200 % 0.0-0.9 [facility] Comment on above: IG% - Immature Granu locytes (promyelocytes, myelocytes and metamyelocytes) > 1% indicates that a LEFT SHIFT is Present. Iron measurement (mass/mass) Ordered By: Sriram Gomez on 05-18-2023 Iron (Unsp spec) [Mass/Mass] 83 ug/dL 50-170 [facility] Laboratory - Chemistry and C hemistry - challengeOrdered By: Sriram Gomez on 05-18-2023 Albumin/Globulin [Mass ratio] 1.1 {ratio} 0.9-2.4 [facility] ALP [Catalytic activity/Vol] 93 U/L 45-117 [facility] ALT [Catalytic activity/Vol] 24 U/L 13-56 [facility] CO2 [Moles/Vol] 31.0 mmol/L 21.0-32.0 [facility] Cobalamin (Vitamin B12) [Mass/Vol] 734 pg/mL 211-911 [facility] Globulin (S) [Mass/Vol] 3.6 g/dL 2.2-4.2 [facility] Urea nitrogen/Creatinine [Mass ratio] 20.9 mg/mg 10-20 [facility] Laboratory - Hematology and Cell countsOrdered By: Sriram Gomez on 05-18-2023 MCH (RBC) [Entitic mass] 28.2 pg 27.0-32.0 [facility] MCHC (RBC) [Mass/Vol] 32.4 g/dL 32-36 [facility] Nucleated RBC/100 WBC (Bld) [Ratio] 0 % 0-5 [facility] Platelets (Bld) [#/Vol] 318 10*3/uL 150-450 [facility] No Panel InformationOrdered By: Sriram Gomez on 05-18-2023 Estimated GFR (MDRD) Amer 83 mL/min >60 [facility] Comment on above: GFR Calc Estimated GFR (MDRD) Non-Af Amer 69 mL/min >60 [facility] Comment on above: Non- GFR Calc Folate 31.10 ng/mL 3.1-55.4 [facility] Comment on above: Slight Hemolysis, Re sult may be falsely increased. Immature Reticulocyte Fraction 8.00 % 3.00-15.90 [facility] Total Iron Binding Capacity 321 ug/dL 250-450 [facility] Platelet mean volume Nolberto-Ec ker (Bld) [Entitic vol]Ordered By: Sriram Gomez on 05-18-2023 Platelet mean volume (Bld) [Entitic vol] 10.3 fL 6.2-12.0 [facility] RBC Auto (Bld) [#/Vol]Ordere d By: Sriram Gomez on 05-18-2023 RBC (Bld) [#/Vol] 4.83 10*6/uL 4.2-5.4 [facility] Reticulocytes Auto (Bld) [#/ Vol]Ordered By: Sriram Gomez on 05-18-2023 Reticulocytes/100 RBC (Bld) 1.22 % 0.5-1.5 [facility] Serum or plasma calcium ale urement (mass/volume)Ordered By: Sriram Gomez on 05-18-2023 Calcium [Mass/Vol] 9.5 mg/dL 8.5-10.1 [facility] Serum or plasma creatinine m easurement (mass/volume)Ordered By: Sriram Gomez on 05-18-2023 Creatinine [Mass/Vol] 0.91 mg/dL 0.55-1.02 [facility] Comment on above: The validity of the calculated GFR & GFRAA in patients over 70 years has not been determined. Clinical correlation is essential. Serum or plasma urea nitroge n measurement (mass/volume)Ordered By: Sriram Gomez on 05-18-2023 Urea nitrogen [Mass/Vol] 19 mg/dL 7-18 [facility] Thin prep Papanicolaou smear with manual screeningOrdered By: Sriram Gomez on 05-18-2023 Thin prep Papanicolaou smear with manual screening 3.8 g/dL 3.2-5.0 [facility] Thin prep Papanicolaou smear with manual screening 18 U/L 15-37 [facility] Thin prep Papanicolaou smear with manual screening 3 5-15 [facility] Laboratory - Chemistry and C hemistry - challengeon 02-10-2022 HCG ( test) Ql (U) Negative [facility] Work Phone: Comment on above: Very dilute urine sp ecimens, as indicated by a low specificgravity, may not contain insurance account representative levels of hCG. If is still suspected, a first morning urinespecimen should be collected 48 hours later and tested. Absolute lymphocyte counton 02-03-2022 Lymphocytes Auto (Unsp spec) [#/Vol] 1.75 10*3/uL 0.83-4.51 [facility] Work Phone: [phone] Basophil percentageon 2021 Basophils/100 WBC (Bld) 0.5 % 0-1 [facility] Work Phone: Cholesterol [Mass/Vol] 195 mg/dL <200 [facility] Work Phone: Comment on above: <200 mg/dL Desirable 200-240 mg/dL Borderline >240 mg/dL High Risk Eosinophils/100 WBC (Bld) 2.4 % 0-5 [facility] Work Phone: Neutrophils (Bld) [#/Vol] 3.8 10*3/uL 2.0-7.7 [facility] Work Phone: Neutrophils/100 WBC (Bld) 60.9 % 47-70 [facility] Work Phone: WBC (Bld) [#/Vol] 6.2 10*3/uL 4.4-11.0 [facility] Work Phone: [phone] Blood erythrocytes count (nu mber/volume)on 02-03-2022 RBC (Bld) [#/Vol] 4.77 10*6/uL 4.2-5.4 [facility] Work Phone: [phone] Blood hemoglobin measurement (mass/volume)on 02-03-2022 Hemoglobin (Bld) [Mass/Vol] 13.4 g/dL 12.0-15.0 [facility] Work Phone: Blood lymphocytes/100 leukoc yteson 02-03-2022 Lymphocytes/100 WBC (Bld) 28.4 % 19-41 [facility] Work Phone: Blood monocytes/100 leukocyt eson 02-03-2022 Monocytes/100 WBC (Bld) 7.6 % 0-10 [facility] Work Phone: Blood platelet mean volumeon 02-03-2022 Platelet mean volume (Bld) [Entitic vol] 10.4 fL 6.2-12.0 [facility] Work Phone: Determination of erythrocyte mean corpuscular volume (MCV)on 02-03-2022 MCV (RBC) [Entitic vol] 85.5 fL 81-99 [facility] Work Phone: Hematocrit Auto (Bld) [Volum e fraction]on 02-03-2022 Hematocrit (Bld) [Volume fraction] 40.8 % 37-47 [facility] Work Phone: [phone] Iron measurement (mass/mass) on 02-03-2022 Iron (Unsp spec) [Mass/Mass] 67 ug/dL 50-170 [facility] Work Phone: Laboratory - Hematology and Cell countson 02-03-2022 Erythrocyte distribution width (RBC) [Entitic vol] 44.4 fL 35.1-43.9 [facility] Work Phone: Erythrocyte distribution width (RBC) [Ratio] 14.1 % 11.6-14.6 [facility] Work Phone: Immature granulocytes/100 WBC (Bld) 0.200 % 0.0-0.9 [facility] Work Phone: Comment on above: IG% - Immature Granu locytes (promyelocytes, myelocytes and metamyelocytes) > 1% indicates that a LEFT SHIFT is Present. MCH (RBC) [Entitic mass] 28.1 pg 27.0-32.0 [facility] Work Phone: Nucleated RBC/100 WBC (Bld) [Ratio] 0 % 0-5 [facility] Work Phone: MCHC Auto (RBC) [Mass/Vol]on 02-03-2022 MCHC (RBC) [Mass/Vol] 32.8 g/dL 32-36 [facility] Work Phone: No Panel Informationon 02-03 Estimated GFR (MDRD) Amer 109 mL/min >60 [facility] Work Phone: Comment on above: GFR Calc Estimated GFR (MDRD) Non-Af Amer 90 mL/min >60 [facility] Work Phone: Comment on above: Non- GFR Calc Platelets bldon 02-03-2022 Platelets (Bld) [#/Vol] 320 10*3/uL 150-450 [facility] Work Phone: Serum or plasma cholesterol in HDL measurement (mass/volume)on 02-03-2022 Cholesterol in HDL [Mass/Vol] 70 mg/dL >40 [facility] Work Phone: Comment on above: The drugs N-Acetylcy steine and Metamizole may falsely depress this assay. Reference Range HDL <40 mg/dL Low HDL Cholesterol HDL >or= 60 mg/dL High HDL Cholesterol Serum or plasma creatinine m easurement (mass/volume)on 02-03-2022 Creatinine [Mass/Vol] 0.72 mg/dL 0.55-1.02 [facility] Work Phone: Comment on above: The validity of the calculated GFR & GFRAA in patients over 70 years has not been determined. Clinical correlation is essential. Serum or plasma ferritin kal surement (mass/volume)on 02-03-2022 Ferritin [Mass/Vol] 17 ng/mL 8-252 [facility] Work Phone: PROGRESSon 05-13-2019 PROGRESS HNO ID: [id number] Author: Radha Guerrero Service: ? Author Type: Digital Imager Type: Progress Notes Filed: 05/13/2019 3:14 PM Note Text: POPULATION HEALTH BEHAVIORAL HEALTH SPECIALIST QUICKNOTE Provider Action/FYI: Patient answered while I was leaving a voicemail and said she's no longer seeing Dr. Ornelas due to insurance. She's seeing Dr. Gomez now. PCP updated. Patient identified by name and . Radha Guerrero CMA [facility] PROGRESS HNO ID: [id number] Author: Radha Guerrero Service: ? Author Type: Digital Imager Type: Progress Notes Filed: 05/13/2019 3:14 PM Note Text: POPULATION [facility] BEHAVIORAL HEALTH SPECIALIST QUICKNOTE Provider Action/FYI: 2nd attempt - Left message for patient to return call #[phone] Patient identified by name and . Radha Guerrero CMA [facility] PROGRESSon 05-09-2019 PROGRESS HNO ID: [id number] Author: Radha Guerrero Service: ? Author Type: Digital Imager Type: Progress Notes Filed: 05/13/2019 3:14 PM Note Text: [facility] BE[facility] SPECIALIST QUICKNOTE Provider Action/FYI: 1st attempt - Left message for patient to return call #[phone] Patient identified by name and . Radha Guerrero CMA [facility] -- VALERIO GAYLE ([id number]) 1970 F Date Time Provider Department 05/07/19 RADHA GUERREROPENN [facility]) INTM[facility] During your visit today, we recorded the following information about you: Radha Guerrero CMA 05/13/2019 3:14 PM Signed PHMA TEAMLET DOCUMENTATION Provider Action/FYI: PSR Action/FYI: No activity since 03/12/2014 (re-established care for 2nd time) I will call patient to verify PCP/schedule physical/re-establish care appointment. If I'm unable to contact patient I will remove Dr. Ornelas as PCP. Health Maintenance Due: DTAP,TDAP,TD(2 - Tdap) due on 06/01/2008 MAMMOGRAM due on 2009 PAP TESTING due on 11/10/2011 HPV TESTING due on 11/10/2011 DIABETES SCREEN due on 03/18/2017 INFLUENZA(1) due on 12/16/2018 LIPID SCREEN due on 03/18/2019 COLORECTAL CANCER SCREENING,SEE MODIFIER due on 2019 SHINGRIX VACCINE(1 of 2) due on 2019 [employer] has identified patient by name and date of . Team: Dr. Johnson Garcia ? Last Office Visit:Visit date not found ? Next Office Visit: Visit date not found ? Last BP/Labs: Blood Pressure: Last 3 Encounter BP Readings: Date: BP: 03/12/2014 100/60 11/16/2009 90/60 11/09/2006 110/60 Lipids: Cholesterol, Total (mg/dL) Date Value 03/18/2014 181 HDL Cholesterol (mg/dL) Date Value 03/18/2014 71 LDL Cholesterol (mg/dL) Date Value 03/18/2014 103 LDL Chol, [place] (mg/dL) Date Value 10/24/2006 113 Triglyceride (mg/dL) Date Value 03/18/2014 37 HGB A1C: No results found for: HBA1C TSH: TSH (uU/mL) Date Value 03/18/2014 2.440 ) Care Gap: not seen in 3 + years Plan: ? Confirm PCP / Status - unknown ? Type of appointment needed: verify pcp/re-establish care ? Consultation Appointments: n/a Labs, HM and Immunization: Health Maintenance Due: DTAP,TDAP,TD(2 - Tdap) due on 06/01/2008 MAMMOGRAM due on 2009 PAP TESTING due on 11/10/2011 HPV TESTING due on 11/10/2011 DIABETES SCREEN due on 03/18/2017 INFLUENZA(1) due on 12/16/2018 LIPID SCREEN due on 03/18/2019 COLORECTAL CANCER SCREENING,SEE MODIFIER due on 2019 SHINGRIX VACCINE(1 of 2) due on 2019 SUBHA Go CMA 05/13/2019 3:14 PM Signed [facility]ATION [facility] BEHAVIORAL HEALTH SPECIALIST QUICKNOTE Provider Action/FYI: 1st attempt - Left message for patient to return call #[phone] Patient identified by name and . SUBHA Go CMA 05/13/2019 3:14 PM Signed POPULATION HEALTH BEHAVIORAL HEALTH SPECIALIST RAUL Provider Action/FYI: 2nd attempt - Left message for patient to return call #[phone] Patient identified by name and . SUBHA Go CMA 05/13/2019 3:14 PM Signed [facility] RAUL Provider Action/FYI: Patient answered while I was leaving a voicemail and said she's no longer seeing Dr. Ornelas due to insurance. She's seeing Dr. Gomez now. PCP updated. Patient identified by name and . Radha Guerrero CMA Allergies As of Date: 05/07/2019 Noted Allergy Reaction AMOXICILLIN 03/12/2014 2 - Rash Date Reviewed: 03/12/2014 Reviewed by: Pam Lucia Cma - Fully Assessed Reason for Visit: PHMA/Care Gap Outreach [8012] Problem List As Of Date 05/07/2019 Noted Resolved TRIGGER FINGER, right middle finger [M65.30] 10/04/2005 ARTHRALGIA HANDS [M25.549] 10/04/2005 PAIN KNEE JOINT, right [M25.569] 10/04/2005 11/16/2009 ALLERGIC RHINITIS NOS [J30.9] 01/16/2006 ABNORM HEART SOUNDS NEC [R01.2] More... Encounter Status:Closed by RADHA GUERRERO CMA on 05/13/19 [facility] PROGRESSon 05-07-2019 PROGRESS HNO ID: [id number] Author: Radha Guerrero Service: ? Author Type: Digital Imager Type: Progress Notes Filed: 05/13/2019 3:14 PM Note Text: PHMA TEAMLET DOCUMENTATION Provider Action/FYI: PSR Action/FYI: No activity since 03/12/2014 (re-established care for 2nd time) I will call patient to verify PCP/schedule physical/re-establish care appointment. If I'm unable to contact patient I will remove Dr. Ornelas as PCP. Health Maintenance Due: DTAP,TDAP,TD(2 - Tdap) due on 06/01/2008 MAMMOGRAM due on 2009 PAP TESTING due on 11/10/2011 HPV TESTING due on 11/10/2011 DIABETES SCREEN due on 03/18/2017 INFLUENZA(1) due on 12/16/2018 LIPID SCREEN due on 03/18/2019 COLORECTAL CANCER SCREENING,SEE MODIFIER due on 2019 SHINGRIX VACCINE(1 of 2) due on 2019 [employer] has identified patient by name and date of . Team: Dr. Johnson Garcia ? Last Office Visit:Visit date not found ? Next Office Visit: Visit date not found ? Last BP/Labs: Blood Pressure: Last 3 Encounter BP Readings: Date: BP: 03/12/2014 100/60 11/16/2009 90/60 11/09/2006 110/60 Lipids: Cholesterol, Total (mg/dL) Date Value 03/18/2014 181 HDL Cholesterol (mg/dL) Date Value 03/18/2014 71 LDL Cholesterol (mg/dL) Date Value 03/18/2014 103 LDL Chol, [place] (mg/dL) Date Value 10/24/2006 113 Triglyceride (mg/dL) Date Value 03/18/2014 37 HGB A1C: No results found for: HBA1C TSH: TSH (uU/mL) Date Value 03/18/2014 2.440 ) Care Gap: not seen in 3 + years Plan: ? Confirm PCP / Status - unknown ? Type of appointment needed: verify pcp/re-establish care ? Consultation Appointments: n/a Labs, HM and Immunization: Health Maintenance Due: DTAP,TDAP,TD(2 - Tdap) due on 06/01/2008 MAMMOGRAM due on 2009 PAP TESTING due on 11/10/2011 HPV TESTING due on 11/10/2011 DIABETES SCREEN due on 03/18/2017 INFLUENZA(1) due on 12/16/2018 LIPID SCREEN due on 03/18/2019 COLORECTAL CANCER SCREENING,SEE MODIFIER due on 2019 SHINGRIX VACCINE(1 of 2) due on 2019 Radha Guerrero, DIRECTOR VETERINARY Normal [facility] Vital Signs Date Time Vital Sign Value Performing Clinician Faci lity 01-09-2025 15:04-0400 Body height 157.[address] Sriram Gomez MD Work Phone: [facility] 01-09-2025 15:04-0400 Body mass index (BMI) [Ratio] 18.8 kg/m2 Dr. Sriram Gomez MD Work Phone: [facility] 01-09-2025 15:04-0400 Body weight 46.[address] Sriram Gomez MD Work Phone: [facility] 01-09-2025 15:04-0400 Diastolic blood pressure 79 mm[Hg] Dr. Sriram Gomez MD Work Phone: [facility] 01-09-2025 15:04-0400 Heart rate 123 /min Dr. Sriram Gomez MD Work Phone: [facility] 01-09-2025 15:04-0400 Respiratory rate 16 /min Dr. Sriram Gomez MD Work Phone: [facility] 01-09-2025 15:04-0400 Systolic blood pressure 133 mm[Hg] Dr. Sriram Gomez MD Work Phone: [facility] 02-10-2022 09:38-0400 Body temperature 97 [degF] Dr. Sriram Gomez Work Phone: [facility] Work Phone: 02-10-2022 09:38-0400 Diastolic blood pressure 75 mm[Hg] Dr. Sriram Gomez Work Phone: [facility] Work Phone: 02-10-2022 09:38-0400 Heart rate 90 /min Dr. Sriram Gomez Work Phone: [facility] Work Phone: 02-10-2022 09:38-0400 Respiratory rate 16 /min Dr. Sriram Gomez Work Phone: [facility] Work Phone: 02-10-2022 09:38-0400 SaO2% (BldA) [Mass fraction] 97 % Dr. Sriram Gomez Work Phone: [facility] Work Phone: 02-10-2022 09:38-0400 Systolic blood pressure 103 mm[Hg] Dr. Sriram Gomez Work [facility] [facility] Work Phone: 02-10-2022 07:51-0400 Body height 157.[address] Sriram Gomez Work Phone: [facility] Work Phone: 02-10-2022 07:51-0400 Body mass index (BMI) [Ratio] 18.1 kg/m2 Dr. Sriram Gomez Work Phone: [facility] Work Phone: 02-10-2022 07:51-0400 Body weight [address] Sriram Gomez Work Phone: [facility] Work Phone: 12-22-2021 08:42-0400 Body height 157.[address] Sriram Gomez Work Phone: [facility] Work Phone: 12-22-2021 08:42-0400 Body mass index (BMI) [Ratio] 18.6 kg/m2 Dr. Sriram Gomez Work Phone: [facility] Work Phone: 12-22-2021 08:42-0400 Body weight 46.[address] Sriram Gomez Work Phone: [facility] Work Phone: Encounters Encounter Date Encounter Type Care Provider Facility Start: 03-26-2025 ambulatory Sriram Gomez Facility:[facility] Start: 02-19-2025 ambulatory Sriram Gomez Facility:[facility] Start: 02-13-2025 ambulatory Sriram Jason Facility:[facility] Start: 01-09-2025 End: 01-09-[address] Lazaro Oakes MD -[facility] Work Phone: Start: 01-09-2025 End: 01-09-[address] Sriram Gomez MD Work Phone: -[facility] Start: 07-11-2024 End: 07-11-2024 ambulatory Lazaro Oakes Facility:[facility] Start: 05-02-2024 End: 05-02-2024 ambulatory Sriram Gomez Facility:[facility] Start: 03-28-2024 Encounter for gynecological examination (general) (routine) without abnormal findings Maricel Mullins NP [facility] Start: 03-28-2024 End: 03-28-2024 ambulatory Sriram Gomez Facility:[facility] Start: 03-28-2024 End: 03-28-2024 ambulatory Sriram Gomez Facility:[facility] Start: 03-05-2024 End: 03-05-2024 ambulatory Sriram Gomez Facility:[facility] Start: 03-05-2024 End: 03-05-2024 ambulatory Sriram Gomez Facility:[facility] Start: 08-17-2023 End: 08-17-2023 ambulatory [facility] Work Phone: Start: 08-17-2023 End: 08-17-2023 Patient encounter procedure [facility] Start: 05-18-2023 End: 05-18-2023 ambulatory [facility] Work Phone: Start: 05-18-2023 End: 05-18-2023 Patient encounter procedure [facility] Work Phone: Start: 02-10-2022 Non-patient / Non-visit Dr. Dick Gomez Work Phone: [facility] Start: 02-10-2022 End: 02-10-2022 Admission to same day surgery center Dr. Sriram Gomez Work Phone: [facility] Start: 02-10-2022 End: 02-10-[address] Sriram Gomez Work Phone: [facility] Work Phone: Start: 02-03-2022 End: 02-03-[address] Sriram Gomez Work Phone: [facility] Work Phone: Start: 02-03-2022 End: 02-03-[address] Sriram Gomez Work Phone: [facility] Start: 12-22-2021 Non-patient / Non-visit Dr. Dick Gomez Work Phone: [facility] Start: 10-21-2021 End: 10-21-2021 Patient encounter procedure [facility]Out[facility] Breast Imaging Procedures Date Procedure Procedure Detail Performing Clinician Start: 02-10-[address] Sriram Vazquez [facility] Work Phone: Start: 10-21-2021 Screening mammography Plan of Treatment Date Care Activity Detail Author Start: 02-10-[address] [facility] Work Phone: Colonoscopy [facility] Work Phone: Patient referral [facility] Work Phone: Payers Date Payer Category Payer Unknown [id number] 2024 Self-pay [id number] 2024 Unknown [id number] Unknown [id number] Unknown [id number] Unknown [id number] 2.16.8 [id number] Unknown [id number] 2.16.8 [id number] Unknown [id number] 2.16.8 [id number] Unknown [id number] 2.16.8 [id number] Unknown [id number] 2.16.8 [id number] Unknown [id number] 2.16.8 [id number] Unknown [id number] 2.16.8 [id number] Unknown [id number] 2.16.8 [id number] Unknown [id number] 2.16.8 [id number] Unknown [id number] 2.16.8 [id number] Social History Date Type Detail Facility Start: 07-30-2018 End: 02-10-2022 Tobacco smoking status NHIS Unknown if ever smoked [facility] Start: 1970 Sex Assigned At Female [facility] Start: 02-10-2022 Tobacco smoking stat us NHIS Never smoked tobacco (finding) [facility] Sex Female [facility] Goals Date Patient Goal Desired Activity /State Mental Status Date Assessment Result Facility 02-10-2022 Cognitive function Level Of Consciousness Sedated [facility] Work Phone: 02-10-2022 Cognitive function Patient Orien tation Person;Place;Time [facility] Work Phone: Progress note 01-09-2025 Note Date & Type Note Facility 01-09-2025 Progress note [facility] Progress note 01-09-2025 Note Date & Type Note Facility 01-09-2025 Progress note Note Date/Time January 09, 2025 3:23pm [facility] [address] [place] [address]. [address] [place] [address] OFFICE VISIT Date of Service: 01/09/25 MR#: [id number] Acct: [id number] Name: VALERIO GAYLE Rep #: [id number] : 1970 Provider: Dr. Eber Oakes MD Age/Sex: 54/F Location: [facility] Status: Signed HPI HPI History of Present Illness Details: 54-year-old lady with a history of palpitations. As part of her workup she had a 7-day monitor placed which demonstrated an average heart rate of 87 bpm minimum of less than 40 bpm. She was in tachycardia 26% of the time. She had initially been put on a beta-jabari of carvedilol half a tablet of 3.125 mg twice a day she is developed headache lightheadedness and got very fatigued and discontinued it. Then she was put on diltiazem 120 mg and says she developed paradoxical increased heart rate dizziness headache tiredness trouble concentrating check and neck discomfort in the second week on the diltiazem was the same and she stopped the diltiazem after 2-1/2 weeks. Overall she says thatshe is feeling better after she stopped the medication she has only occasional lightheadedness. After her last visit I obtained a 48-hour Holter monitor whichdemonstrated an average heart rate of 99 bpm. Her echocardiogram demonstrated preserved ejection fraction of 60%. Her TSH was noted to be normal. Her T4 is also normal. She has been started on the ivabradine and she thinks that she is doing much better. Her blood pressures at home have actually been doing quite well with the midodrine. She is happy with the current dosages and does not want any changes. She does have documentation for the above. Intake Vital Signs 07/11/24 14:24 01/09/25 15:04 Height 5 ft 2 in 5 ft 2 in Weight: 105 lb 103 lb BMI 19.2 18.8 BP 130/81 H 133/79 H Blood Pressure Location Lt brachial Lt brachial Position Sitting Sitting Respiration 16 16 Pulse 113 H 123 H Pulse Source Monitor Intake Visit Reasons: [employer] Doctor Required: No Accompanied by: Self Is patient in pain?: No Allergies amoxicillin Allergy (Intermediate, Verified 01/09/25 15:07) Rash Medications ?Medication ?Instructions ?Recorded ?Confirmed ?Type loratadine 10 mg tablet (Claritin) 10 mg PO PRN PRN AL BRENDAN 07/30/18 01/09/25 History multivitamin 1 tab PO DAILY 09/12/2312/17 History midodrine 2.5 mg tablet 2.5 mg PO BID #60 tabs 09/2401/09/25 Rx ivabradine 5 mg tablet 5 mg PO BID #180 tabs 01/09/25 Rx Ejection fraction %: 60 PFSH Medical History Intermittent palpitations Tachycardia Gastric reflux History of irregular heartbeat Surgical History History of colonoscopy History of tonsillectomy Family History Sister Renal cancer Mother Rheumatoid arthritis Father Alzheimer disease Social History Smoking Status: Never smoker alcohol intake: never substance use type: does not use caffeine: Yes what type of physical activity do you participate in: walking seatbelt use: always do you feel safe at home: Yes 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 Const Const: Negative for fatigue, weakness, daytime sleepiness or difficulty sleeping ENT ENT: Positive for dizziness (has decreased since starting midodrine ); Negative for Nosebleed/epistaxis Cardio Chest Pain: No Palpitations: Yes Edema: None Resp Respiratory: Negative for SOB with activity, SOB at rest, SOB orthopnea\SOB lying down or Cough GI GI: Negative nausea, vomiting or heartburn Neuro Neuro: Positive for dizziness (has decreased since starting midodrine ); Negative for lightheadedness, near syncope or weakness Endo Endo: Negative for fatigue Supplemental Info Supplemental Information Echocardiogram 10/17/23 Interpretation Summary Normal LV size. Left ventricular systolic function is normal. Pulmonary artery systolic pressure is 27 mmHg. The left ventricular ejection fraction is 60 %. Mild tricuspid valve insufficiency. 48 Hour Holter Monitor 01/31/24 Conclusion Normal Sinus Rhythm with rare PVCs/PACs Diagnostics: Electrocardiogram Echocardiogram Extremity Arterial Study Venous Doppler Study Past Visits: Cardiology Visit Today Assessment and Plan Assessment and Plan (1) Tachycardia: Status: Acute Plan: She appears to have a residual sinus tachycardia the etiology of which is not entirely clear. This has improved significantly since the ivabradine and she will continue on the 5 mg twice a day. Her blood pressure she says has been lowand she has been somewhat symptomatic. She will also continue the midodrine which she has been taking at 2.5 mg twice aday as needed and she thinks this is doing well. I have also encouraged her to be on a gluten-free diet. Thank you for allowing me to participate in the care of your patient. Please don't hesitate to call if any issues arise. Medications: Refilled ivabradine must administer with a meal/food 5 mg PO BID 180 tabs 3RF Plan Details Follow Up: 9 Months (cs) Coding Level of Care Code Off vis,est,level 4 Diagnoses Tachycardia R00.0 Coding Level of Care Code Off vis,est,level 4 Diagnoses Tachycardia R00.0 Clinical Quality Measures Cardiac Ejection fraction %: 60 01/09/25 1538 <Electronically signed by Lazaro Comer> Date _ Lazaro Oakes MD Cosigner Signature: Date (if applicable) CC: Dr. Sriram Gomez MD ~ [facility] Work Phone: Evaluation note Note Date & Type Note Facility Evaluation note No assessment information availa ble [facility] Work Phone: Evaluation note Note Date & Type Note Facility Evaluation note Diagnosis Onset Date Encounter for screening for malignant neoplasm of colon acute [facility] Work Phone: Evaluation note Note Date & Type Note Facility Evaluation note Diagnosis Onset Date Resolution Tachycardia acute December 3:03pm [facility] Work Phone: Reason for referral (narrative) Note Date & Type Note Facility Reason for referral (narrative) No reason for referral information available [facility] Work Phone: Summary Purpose Family History No Family History Records Found Relationship Condition Age at Onset Recorded Date/T juani sister Malignant neoplasm of kidney Unknown mother Rheumatoid arthritis Unknown father Alzheimer's disease Unknown Advance Directives No Advanced Directives Records Found Advance Directive Response Recorded Date/ Time Living Will No February 04 3:21pm Power of Vehicle Operator Technician No February 04, 2022 3:21pm Advance Directive Response Recorded Date/ Time Living Will No February 04 2:21pm Power of Vehicle Operator Technician No February 04, 2022 2:21pm Chief Complaint and Reason for Visit Chief Complaint SCREENING Chief Complaint SCREENING Amb Documentation E ORDERS ALSO Chief Complaint SCREENING Amb Documentation E ORDERS ALSO Reason for Visit Encounter for screen ing for malignant neoplasm of colon Chief Complaint Admit Date 6 M FU January 09, 2025 3:03pm Reason for Visit Admit Date Tachycardia January 09, 2025 3:03pm Additional Source Comments INFORMATION SOURCE (unrecogn ized section and content) DATE CREATED AUTHOR 05/13/2019 [facility] DATE CREATED AUTHOR AUTHOR'S ORGANIZ ATION 02/25/2025 [facility] Goals (unrecognized section and content) Goals may be documented in a n alternate sectionGoals may be documented in an alternate sectionGoals may be documented in an alternate sectionGoals may be documented in an alternate sectionGoals may be documented in an alternate section Care Teams (unrecognized sec tion and content) Team Status: Active Member Role Status Dates Dr. Sriram Gomez MD Family Provider Active Dr. Sriram Gomez MD Primary Care Provider Active Team Status: Inactive Member Role Status Dates Dr. Sriram Gomez MD Primary Care Provide r, Attending Provider, Referring Provider Active Team Status: Inactive Member Role Status Dates Dr. Sriram Gomez MD Primary Care Provider, Attending P alejandra Active Team Status: Active Member Role/Relationship Status Dates Dr. Sriram Gomez MD Primary care physician Active Team Status: Inactive Member Role/Relationship Status Dates Dr. Sriram Gomez MD Primary care physician Active Start: January 09, 2025 End: January 09, 2025 Dr. Sriram Gomez MD Referring Provider Active St art: January 09, 2025 End: January 09, 2025 Dr. Lazaro Oakes MD Attending physician Active Start: January 09, 2025 End: January 09, 2025 FOR RECORDS PERTAINING TO PATIENTS WHO ARE OR HAVE BEEN ENROLLED IN A CHEMICAL DEPENDENCY/SUBSTANCEABUSE PROGRAM, SOME INFORMATION MAY BE OMITTED. This clinical summary was aggregated from multiple sources. Caution should be exercised in using it in the provision of clinical care. This summary normalizes information from multiple sources, and as a consequence, information in this document may materially change the coding, format and clinical context of patient data. In addition, data may be omitted in some cases. CLINICAL DECISIONS SHOULD BE BASED ON THE PRIMARY CLINICAL RECORDS. [employer] provides no warranty or guarantee of the accuracy or completeness of information in this document.
--- NOTE | 2025-03-26 12:44 | NEURO ---
NCS and/or EMG Patient Report Ordering Doctor: Sergio Godinez DATE OF SERVICE: 03/26/25 Lexii presents with complaints of intermittent numbness and pain in the feet. Electrodiagnostic findings: Peroneal motor nerve demonstrates normal distal latency, amplitude and conduction velocity bilaterally. Normal tibial motor response bilaterally. Normal tibial and peroneal F?waves. Normal H?reflex bilaterally. Sensory responses are within normal limits. Needle EMG testing was performed in the lower limbs. All muscles tested showed no evidence of denervation with normal motor unit action potentials. Electrodiagnostic impression: This is a normal electrodiagnostic study of the lower limbs. There is no electrodiagnostic evidence for peripheral neuropathy or lumbosacral radiculopathy. Multi Select Codes Neurology Neurology Interp Codes: 08147-90 Musc test done w/n test comp (interp) (2) and 65952-49 Nrv cndj test 9-10 studies (interp)
== END | disposition home or self-care (01) ==
PROVIDERS: PCP Family Medicine; Referring Provider Podiatrist; Visit Provider Podiatrist
DX: G60.8 Other hereditary and idiopathic neuropathies (principal); M79.671 Pain in right foot; M79.672 Pain in left foot
CPT/HCPCS: 95886; 95911